=== PATIENT | female | born 1960 | race Caucasian/White ===

== ENCOUNTER 2017-01-12 08:33 | Outpatient (CLI) | payer BC ==
[~2017-01-12] VITALS: Ht 165.1 cm; Wt 55.8 kg
[2017-01-12] MEDS ORDERED: LEVO75TA PO (10:05)
[2017-01-12] MEDS ORDERED: ESTR1TAB24 PO (10:05)
[2017-01-12] MEDS ORDERED: SERT100T PO (10:05)
[2017-01-12] MEDS ORDERED: MAXZIDE PO (10:05)
== END 2017-01-12 10:07 ==
LOC: PREOP 08:33
PROVIDERS: ATTEND Surgery
DX: Z01.818 Encounter for other preprocedural examination (principal); K92.1 Melena

== ENCOUNTER 2017-01-15 11:23 | Day surgery (SDC) | payer BC ==
[~2017-01-15] VITALS: Ht 165.1 cm; Wt 55.8 kg
[~2017-01-15 11:23] MED LIST: ESTR1TAB24 PO; LEVO75TA PO; MAXZIDE PO; SERT100T PO
[2017-01-15] MEDS ORDERED: LACTATED RINGERS 1,000 ML IV ONE (11:30)
[2017-01-15 11:50] VITALS: BP 133/85
[2017-01-15] MEDS ORDERED: proPOfol 200 MG/20 ML (DIPRIVAN) VIAL IV ONE ×2 (11:52→12:09)
[2017-01-15] MEDS ORDERED: MIDAZOLAM 2 MG/2 ML (VERSED) VIAL ONE (11:53)
--- NOTE | 2017-01-15 11:59 | Progress Note-Pre Operative ---
Pre-Operative Progress Note H&P Reviewed The H&P was reviewed, patient examined and no changes noted. Time Seen by Provider: 11:54 Date H&P Reviewed: Jan 15, 2017 Time H&P Reviewed: 11:58 Pre-Operative Diagnosis: Rectal bleed KADEN BACK DO Jan 15, 2017 11:58
[2017-01-15 12:45] VITALS: BP 110/66
[2017-01-15 13:20] VITALS: BP 143/94
--- NOTE | 2017-01-15 13:22 | Progress Note-Post Operative ---
Post-Operative Progess Note Surgeon (s)/Lending Manager (s) Surgeon KADEN BACK DO Lending Manager: none Pre-Operative Diagnosis Rectal bleed Post-Operative Diagnosis colon polyp colon mass diverticula internal hemorrhoids Procedure & Operative Findings Date of Procedure 01/15/17 Procedure Performed/Findings Colon with snare Colon with hot bx Anesthesia Type IV sedation by LEAD WEB DEVELOPER Estimated Blood Loss Estimated blood loss (mL): scant Specimens/Packing Specimens Removed Polyp - ascending colon Sigmoid Colon mass - bx KADEN BACK DO Jan 15, 2017 13:22
[2017-01-15 13:24] VITALS: BP 143/94
--- NOTE | 2017-01-15 13:24 | Endoscopy Discharge Instruct ---
Endo Procedure/Findings Findings 1.: Polyp 2.: Other Findings (large sigmoid colon polyp/mass) 3.: Diverticulosis 4.: Internal Hemorrhoids Discharge Instructions - Activity: You might feel a little sleepy until tomorrow. This is due to the medicine you received to relax you. Until tomorrow, you should: NOT drive a car, operate machinery or power tools. NOT drink any alcoholic beverages. NOT make any important decisions or sign importortant papers. Do not return to work until tomorrow, unless otherwise instructed. Resume previous activities tomorrow. Diet: Start by taking liquids. If you tolerate liquids, advance to solid food. Make appointment for one week from now. Instructions: 1.: Colonoscopy in 1 year Notify Physician - If you experience excessive bleeding, unusual abdominal pain, fever, or chest pain, contact your doctor immediately. [phone] Follow-Up: - I have received and understand the above instructions and will call my doctor if I have any further questions. Patient Signature Date Nurse Signature Other (Relationship) KADEN BACK DO Jan 15, 2017 13:23
--- NOTE | 2017-01-15 14:28 | OPERATIVE REPORT ---
DATE OF SERVICE: 01/15/2017 PREOPERATIVE DIAGNOSIS: Rectal bleed. POSTOPERATIVE DIAGNOSES: 1. Colon polyp. 2. Colon mass. 3. Diverticula. 4. Internal hemorrhoids. PROCEDURE: 1. Colonoscopy with snare polypectomy. 2. Colonoscopy with hot biopsy. SURGEON: Dr. Bauer. MORTGAGE MANAGER: None. ANESTHESIA: IV sedation by the GENDER STUDIES PROFESSOR. SPECIMEN: One polyp from the ascending colon and then biopsies from a mass in the sigmoid colon. BLOOD LOSS: Scant. FLUIDS: Per anesthesia. POSTOPERATIVE CONDITION: Stable. INDICATION FOR PROCEDURE: The patient is a 56-year-old female who had a little bit of rectal bleeding and has never had a colonoscopy and needs workup. FINDINGS: The patient had a small polyp seen in the ascending colon. She has a long polyp/mass in the sigmoid colon at about 18 cm to about 28 cm. She also had some diverticula noted, some grade II, almost grade III internal hemorrhoids. PROCEDURE NOTE: After informed consent was obtained, the patient was brought to the endoscopy suite, placed in the bed in left lateral decubitus position. She was administered IV sedation by the GENDER STUDIES PROFESSOR and her vitals monitored the entire time by the GENDER STUDIES PROFESSOR. Inserted the scope and on the way in noted a large polyp/mass, pushed pass this. Pushed all the way to about 150 cm, able to get all the way to cecum, took a picture of the appendiceal orifice, noted the ileocecal valve and then slowly withdrew the scope insufflating to look circumferentially at the lee looking at the cecum up the ascending colon. In the ascending colon saw a small polyp. Elected to do a snare polypectomy. I removed this en bloc, passed this off the suction, able to get this out, suctioned this up and then sent this to pathology. I continued up the ascending colon, there were some diverticula in here to the hepatic flexure, then down the transverse colon to the splenic flexure and then into the descending colon and into the sigmoid. Again saw some diverticula throughout here. In the sigmoid colon at about 28 cm saw the beginnings of a large colonic polyp or mass. I went back down to about 10 cm, elected to do a couple biopsies of this polyp/mass. These were then sent to pathology. I then continued down into the rectum, retroflexed and rectal vault. Saw some grade II, almost grade III internal hemorrhoids, took a picture of this and then removed the scope. The patient tolerated procedure. She was recovered in the endoscopy suite and then taken back to her room. Job ID: [id number] DocumentID: [id number] Dictated Date: 01/15/2017 13:37:06 Suspect Artist Supervisor Date: 01/15/2017 14:27:11 Dictated By: KADEN BAUER DO
== END 2017-01-15 13:50 | disposition home or self-care (01) ==
LOC: ENDO 11:23
PROVIDERS: ATTEND Surgery
DX: C18.7 Malignant neoplasm of sigmoid colon (principal); D12.2 Benign neoplasm of ascending colon; K57.30 Diverticulosis of large intestine without perforation or abscess without bleeding; K64.8 Other hemorrhoids; I10 Essential (primary) hypertension; Z87.891 Personal history of nicotine dependence

== ENCOUNTER 2017-01-24 12:47 | Outpatient (CLI) | payer BC ==
[~2017-01-24] VITALS: Ht 165.1 cm; Wt 53.6 kg
[2017-01-24] MEDS ORDERED: TRIA1CAP4 PO (13:09)
[2017-01-24] MEDS ORDERED: MEDR2.5T6 PO (13:09)
[2017-01-24 13:13] VITALS: BP 121/82
[2017-01-24 13:51] LABS: BASOPHILS # (AUTO) 0.1 10^3/uL (0.0-0.1); BASOPHILS % (AUTO) 2 % (0-10); EOSINOPHILS # (AUTO) 0.1 10^3/uL (0.0-0.3); EOSINOPHILS % (AUTO) 1 % (0-10); LYMPHOCYTES # (AUTO) 2.4 X 10^3 (1.0-4.0); LYMPHOCYTES % (AUTO) 31 % (12-44); MEAN CORPUSCULAR HEMOGLOBIN 31 PG (25-34); MEAN CORPUSCULAR HGB CONC 34 G/DL (32-36); MEAN CORPUSCULAR VOLUME 89 FL (80-99); MEAN PLATELET VOLUME 9.7 FL (7.4-10.4); MONOCYTES # (AUTO) 0.5 X 10^3 (0.0-1.0); MONOCYTES % (AUTO) 6 % (0-12); NEUTROPHILS # (AUTO) 4.8 X 10^3 (1.8-7.8); NEUTROPHILS % (AUTO) 61 % (42-75); PLATELET COUNT 377 10^3/uL (130-400); RED BLOOD COUNT 4.43 10^6/uL (4.35-5.85); RED CELL DISTRIBUTION WIDTH 12.1 % (10.0-14.5)
[2017-01-24 14:14] LABS: ALANINE AMINOTRANSFERASE 12 U/L (0-55); ALBUMIN 4.6 GM/DL (3.2-4.5); ANION GAP 8 MMOL/L (5-14); ASPARTATE AMINO TRANSFERASE 17 U/L (5-34); BILIRUBIN,TOTAL 0.5 MG/DL (0.1-1.0); BLOOD UREA NITROGEN 10 MG/DL (7-18); BUN/CREATININE RATIO 13; CALCIUM 9.7 MG/DL (8.5-10.1); CARBON DIOXIDE 28 MMOL/L (21-32); CHLORIDE 103 MMOL/L (98-107); CREATININE SERUM 0.78 MG/DL (0.60-1.30); GFR ESTIMATED > 60; GLUCOSE 81 MG/DL (70-105); POTASSIUM 3.5 MMOL/L (3.6-5.0); SODIUM 139 MMOL/L (135-145)
[2017-01-25] MEDS ORDERED: TRIA1TAB3 PO (14:33)
[2017-01-25] MEDS ORDERED: CHOL5000 PO (14:37)
[2017-01-25] MEDS ORDERED: FLUT16SP22 NS (14:37)
[2017-01-25] MEDS ORDERED: MAGN500C15 PO (14:37)
[2017-01-25] MEDS ORDERED: L.AC1CAP6 PO (14:37)
== END 2017-01-24 14:43 | disposition home or self-care (01) ==
LOC: PREOP 12:47
PROVIDERS: ATTEND Surgery
DX: Z01.812 Encounter for preprocedural laboratory examination (principal); C18.9 Malignant neoplasm of colon, unspecified
CPT/HCPCS: 36415; 80053; 85025; 86850; 86900; 86901; 87081

== ENCOUNTER 2017-01-29 08:22 | Inpatient (IN) | payer BC ==
[~2017-01-29] VITALS: Ht 165.1 cm; Wt 53.6 kg
[~2017-01-29 08:22] MED LIST changes: +CHOL5000 PO; +FLUT16SP22 NS; +L.AC1CAP6 PO; +MAGN500C15 PO; +MEDR2.5T6 PO; +TRIA1CAP4 PO; +TRIA1TAB3 PO
[2017-01-29] MEDS: LACTATED RINGERS 1,000 ML IV PRN ×2 (08:45→11:45)
[2017-01-29] MEDS ORDERED: CLINDAMYCIN 600 MG/4ML (CLEOCIN) VIAL ONE (08:46)
[2017-01-29] MEDS ORDERED: NS (IVPB) 50 ML ONE (08:47)
[2017-01-29] MEDS ORDERED: CLINDAMYCIN 600 MG/NS 50 ML IVPB IV ONE ×2 (09:00)
[2017-01-29 09:16] VITALS: BP 129/84
[2017-01-29] MEDS ORDERED: LACTATED RINGERS 1,000 ML IV PRN (09:28)
[2017-01-29] MEDS ORDERED: ROPIVACAINE 5MG/ML 30ML VIAL ONE (09:29)
[2017-01-29] MEDS ORDERED: 0.9% SODIUM CHLORIDE PF INJ 20 ML VIAL ONE (09:31)
--- NOTE | 2017-01-29 09:32 | History & Physical-Surgical ---
HPO-Surgical History of Present Illness Chief Complaint: Sigmoid colon CA Diagnosis/Surgical Indication: Same as above Procedure: Hand Assisted Laparoscopic Sigmoid Colon Resection Date of Surgery: Jan 29, 2017 Weight (Pounds): 118 Weight (Ounces): 2.0 Height (Feet): 5 Height (Inches): 5.00 Allergies and Home Medications Allergies Coded Allergies: cefotetan (Verified Allergy, Unknown, 01/24/17) morphine (Verified Allergy, Unknown, 01/24/17) Home Medications Cholecalciferol (Vitamin D3) 5,000 Unit Capsule, 5,000 UNIT PO DAILY, (Reported) Estradiol 1 Mg Tablet, 1 MG PO DAILY, (Reported) Fluticasone Propionate 16 Gm [place].susp, 1 SPRAY NS DAILY PRN for CONGESTION, ( Reported) L.acidoph & Paracasei,B.lactis 1 Each Capsule, 1 CAP PO DAILY, (Reported) Levothyroxine Sodium 75 Mcg Tablet, 75 MCG PO DAILY, (Reported) LAST FILLED #60 10-12-16 Magnesium Oxide 500 Mg Capsule, 500 MG PO DAILY, (Reported) Medroxyprogesterone Acetate 2.5 Mg Tablet, 2.5 MG PO DAILY, (Reported) LAST FILLED #60 10-12-16 Sertraline HCl 100 Mg Tablet, 100 MG PO HS, (Reported) Triamterene/Hydrochlorothiazid 1 Each Tablet, 1 TAB PO DAILY, (Reported) LAST FILLED #90 10-10-16 Past Nzaohkh-Xpevaz-Gsrdbu Hx Patient Social History Alcohol Use: Occasionally Uses Recreational Drug Use: No Smoking Status: Former Smoker Former Smoker, Quit: Jan 13, 2004 Type Used: Cigarettes Physical Abuse Screen: No Sexual Abuse: No Recent Foreign Travel: No Contact w/other who traveled: No Recent Hopitalizations: Yes Recent Infectious Disease Expo: No Seasonal Allergies Seasonal Allergies: No Surgeries Yes Gallbladder, Tonsillectomy Respiratory No Cardiovascular Yes (TAKES TRIM/HCTZ FOR FLUID) Neurological Yes Reproductive System Sexually Transmitted Disease: No HIV/AIDS: No Genitourinary No Gastrointestinal Yes (ADENOCARCINOMA) Chronic Constipation Musculoskeletal No Endocrine History of Endocrine Disorders: Yes HEENT History of HEENT Disorders: Yes (READING GLASSES) Loss of Vision: Bilateral Hearing Impairment: Denies Cancer Yes Colon Psychosocial History of Psychiatric Problem: No Integumentary History of Skin or Integumenta: Yes Skin/Integumentary Disorders: Eczema Blood Transfusions History of Blood Disorders: No Adverse Reaction to a Blood Tr: No Exam Vital Signs Vital Signs 01/29/17 09:16 Temp 98.7 Pulse 78 Resp 16 B/P (MAP) 129/84 Pulse Ox 100 O2 Delivery Room Air Capillary Refill : General Appearance: Alert, Oriented X3 HEENT: PERRLA, EOMI Cardiovascular: Regular Rate, No Murmurs Abdominal: Normal Bowel Sounds, Soft, No Hepatosplenomegaly Assessment/Plan Assessment and Plan Sigmoid Colon CA Plan is to take pt to surgery for Hand Assisted Laparoscopic Sigmoid colon resection. Will attempt a TAP block for pain control. Discussed risks and complications with the pt; including but not limited to pain, bleeding, infection, damage to bowel and need for further procedure. All questions answered to her and her family's satisfaction. Problems: KADEN BACK DO Jan 29, 2017 09:32
[2017-01-29] MEDS ORDERED: MIDAZOLAM 2 MG/2 ML (VERSED) VIAL ONE (09:51)
[2017-01-29] MEDS ORDERED: ONDANSETRON 4 MG/2 ML (SDV) Z0FRAN ONE ×2 (09:51→12:14)
[2017-01-29] MEDS ORDERED: proPOfol 200 MG/20 ML (DIPRIVAN) VIAL IV ONE (09:51)
[2017-01-29] MEDS ORDERED: ROCURONIUM 50 MG/5 ML (ZEMURON) VIAL IV ONE (09:51)
[2017-01-29] MEDS ORDERED: LIDOCAINE PF 2% 5 ML (XYLOCAINE) VIAL ONE (09:51)
[2017-01-29] MEDS ORDERED: fentaNYL INJECTION 100 MCG/2 ML AMP ONE ×2 (09:51→12:14)
[2017-01-29] MEDS ORDERED: LIDOCAINE/EPI 1%-1:200,000 (XYLOCAINE) 10 ML VIAL ONE (10:01)
[2017-01-29] MEDS ORDERED: SEVOFLURANE (ULTANE) 15 ML INHAL SOLN ONE ×5 (11:04→12:23)
[2017-01-29] MEDS ORDERED: HYDROmorphone (DILAUDID) 2 MG/ML VIAL ONE (12:13)
[2017-01-29] MEDS ORDERED: NEOSTIGMINE (BLOXIVERZ ) 1 MG/1ML 10 ML VIAL ONE (12:20)
[2017-01-29] MEDS ORDERED: GLYCOPYRROLATE 0.2 MG/ML (ROBINUL) 2 ML VIAL ONE (12:20)
[2017-01-29] MEDS ORDERED: MEPERIDINE (DEMEROL) INJ 50 MG/ML ONE (12:24)
[2017-01-29] MEDS ORDERED: ONDANSETRON 4 MG/2 ML (SDV) Z0FRAN IV PRN (12:30)
[2017-01-29] MEDS ORDERED: ONDANSETRON 4 MG/2 ML (SDV) Z0FRAN IVP PRN (13:00)
[2017-01-29] MEDS ORDERED: fentaNYL INJECTION 100 MCG/2 ML AMP IVP PRN (13:00)
[2017-01-29] MEDS ORDERED: KETOROLAC 30 MG/ML VIAL IV SCH (13:00)
[2017-01-29] MEDS ORDERED: MEPERIDINE (DEMEROL) INJ 50 MG/ML IVP PRN (13:00)
[2017-01-29 13:45] VITALS: BP 123/66
[2017-01-29] MEDS: ACETAMINOPHEN 500 MG TAB (TYLENOL) PO SCH ×3 (15:27→21:20)
[2017-01-29] MEDS: LACTATED RINGERS 1,000 ML IV SCH ×2 (15:28→23:38)
[2017-01-29 16:59] VITALS: BP 102/63
[2017-01-29] MEDS: KETOROLAC 30 MG/ML VIAL IVP PRN (18:10)
[2017-01-29] MEDS ORDERED: INFLUENZA TRIvalent 2017-2018 0.5 ML/45 MCG SYR IM ONE (19:15)
[2017-01-29 20:57] VITALS: BP 103/66
[2017-01-29] MEDS: fentaNYL INJECTION 100 MCG/2 ML AMP IVP PRN (21:20)
[2017-01-30 00:22] VITALS: BP 101/58
[2017-01-30] MEDS: fentaNYL INJECTION 100 MCG/2 ML AMP IVP PRN ×4 (03:07→20:46)
[2017-01-30] MEDS: KETOROLAC 30 MG/ML VIAL IVP PRN ×4 (03:07→20:44)
[2017-01-30 04:25] VITALS: BP 132/75
[2017-01-30] MEDS: LACTATED RINGERS 1,000 ML IV SCH ×3 (04:51→14:40)
[2017-01-30 06:45] LABS: BASOPHILS # (AUTO) 0.1 10^3/uL (0.0-0.1); BASOPHILS % (AUTO) 1 % (0-10); EOSINOPHILS % (AUTO) 1 % (0-10); LYMPHOCYTES # (AUTO) 1.6 X 10^3 (1.0-4.0); LYMPHOCYTES % (AUTO) 25 % (12-44); MEAN CORPUSCULAR HEMOGLOBIN 30 PG (25-34); MEAN CORPUSCULAR HGB CONC 33 G/DL (32-36); MEAN CORPUSCULAR VOLUME 92 FL (80-99); MEAN PLATELET VOLUME 10.1 FL (7.4-10.4); MONOCYTES # (AUTO) 0.6 X 10^3 (0.0-1.0); MONOCYTES % (AUTO) 9 % (0-12); NEUTROPHILS # (AUTO) 4.2 X 10^3 (1.8-7.8); NEUTROPHILS % (AUTO) 65 % (42-75); PLATELET COUNT 228 10^3/uL (130-400); RED BLOOD COUNT 3.36 10^6/uL (4.35-5.85); RED CELL DISTRIBUTION WIDTH 12.2 % (10.0-14.5); WHITE BLOOD COUNT 6.6 10^3/uL (4.3-11.0)
[2017-01-30 07:01] LABS: ALANINE AMINOTRANSFERASE 11 U/L (0-55); ALBUMIN 3.1 GM/DL (3.2-4.5); ANION GAP 7 MMOL/L (5-14); ASPARTATE AMINO TRANSFERASE 16 U/L (5-34); BILIRUBIN,TOTAL 0.6 MG/DL (0.1-1.0); BLOOD UREA NITROGEN 5 MG/DL (7-18); BUN/CREATININE RATIO 8; CALCIUM 8.2 MG/DL (8.5-10.1); CARBON DIOXIDE 24 MMOL/L (21-32); CHLORIDE 109 MMOL/L (98-107); CREATININE SERUM 0.66 MG/DL (0.60-1.30); GFR ESTIMATED > 60; GLUCOSE 85 MG/DL (70-105); POTASSIUM 3.5 MMOL/L (3.6-5.0); SODIUM 140 MMOL/L (135-145); TOTAL PROTEIN 5.4 GM/DL (6.4-8.2)
[2017-01-30 08:00] VITALS: BP 127/61
[2017-01-30] MEDS: ACETAMINOPHEN 500 MG TAB (TYLENOL) PO SCH ×4 (09:57→20:36)
--- NOTE | 2017-01-30 10:30 | Progress Note-Post Operative ---
Post-Operative Progess Note Surgeon (s)/Battery Plate Remover (s) Surgeon KADEN BACK DO Battery Plate Remover: Marilu Pre-Operative Diagnosis Sigmoid colon CA Post-Operative Diagnosis Same Procedure & Operative Findings Date of Procedure 01/30/17 Procedure Performed/Findings Hand assisted Laparoscopic Low anterior resection with primary anastomosis Anesthesia Type GET Estimated Blood Loss Estimated blood loss (mL): less than 5ml Specimens/Packing Specimens Removed sigmoid colon, with at least 5cm proximal margin and 8cm distal margin by palpation, one lymph node palpated KADEN BACK DO Jan 30, 2017 10:30
--- NOTE | 2017-01-30 10:36 | Progress Note ---
Subjective Date Seen by Provider: Jan 30, 2017 Time Seen by Provider: 10:17 Subjective/Events-last exam Pt seen and examined, states pain is about a 5. Tolerating clears, no flatus or BM yet. Had increased pain last night and was given Fentanyl which helped. Has not walked yet today. Review of Systems General: No Chills, No Night Sweats Pulmonary: No Dyspnea, No Cough Cardiovascular: No: Chest Pain Gastrointestinal: Abdominal Pain, No: Nausea, Vomiting Objective Exam Vital Signs Date Time Temp Pulse Resp B/P (MAP) Pulse Ox O2 Delivery O2 Flow Rate FiO2 01/30/17 08:00 99.3 69 20 127/61 99 Room Air 01/30/17 04:25 99.3 63 18 132/75 99 Room Air 01/30/17 00:22 98.4 74 17 101/58 97 Room Air 01/29/17 20:57 98.2 77 16 103/66 97 Room Air 01/29/17 16:59 98.6 82 16 102/63 97 Room Air 01/29/17 13:45 97.5 72 18 123/66 99 Room Air Capillary Refill : General Appearance: No Apparent Distress, Thin Respiratory: Lungs Clear, Normal Breath Sounds Cardiovascular: Regular Rate, Rhythm, No Murmur Gastrointestinal: soft, tenderness (diffusely but most at midline incision) Neurologic/Psychiatric: Alert, Oriented x3 Results Lab Laboratory Tests 01/30/17 06:30: White Blood Count 6.6, Red Blood Count 3.36L, Hemoglobin 10.2#L, Hematocrit 31L , Mean Corpuscular Volume 92, Mean Corpuscular Hemoglobin 30, Mean Corpuscular Hemoglobin Concent 33, Red Cell Distribution Width 12.2, Platelet Count 228, Mean Platelet Volume 10.1, Neutrophils (%) (Auto) 65, Lymphocytes (%) (Auto) 25 , Monocytes (%) (Auto) 9, Eosinophils (%) (Auto) 1, Basophils (%) (Auto) 1, Neutrophils # (Auto) 4.2, Lymphocytes # (Auto) 1.6, Monocytes # (Auto) 0.6, Eosinophils # (Auto) 0.0, Basophils # (Auto) 0.1, Sodium Level 140, Potassium Level 3.5L, Chloride Level 109H, Carbon Dioxide Level 24, Anion Gap 7, Blood Urea Nitrogen 5L, Creatinine 0.66, Estimat Glomerular Filtration Rate > 60, BUN/ Creatinine Ratio 8, Glucose Level 85, Calcium Level 8.2L, Total Bilirubin 0.6, Aspartate Amino Transf (AST/SGOT) 16, Alanine Aminotransferase (ALT/SGPT) 11, Alkaline Phosphatase 40, Total Protein 5.4L, Albumin 3.1L Assessment/Plan Assessment/Plan Assessment/Plan S/P LAR Will increase to full liquid diet. IS ordered, pt instructed to use 10x every hour while awake. Pt told she must start ambulating, at least 4 times daily....better would be hourly. Pt also told it is ok to take occasional Fentanyl (we are trying avoid opioid constipation) but would rather have her able to walk, move and take deep breaths.....all those will help her get out sooner. Also encouraged her to chew gum. Clinical Quality Measures DVT/VTE Risk/Contraindication: Risk Factor Score Per Nursin RFS Level Per Nursing on Admit: 4+=Very High KADEN BACK DO Jan 30, 2017 10:36
[2017-01-30 12:00] VITALS: BP 135/69
--- NOTE | 2017-01-30 14:58 | Anesthesia-General Post-Op ---
General Patient Condition Mental Status/LOC: Same as Preop Cardiovascular: Satisfactory Nausea/Vomiting: Absent Respiratory: Satisfactory Pain: Controlled Complications: Absent Post Op Complications Complications None Follow Up Care/Instructions Patient Instructions None needed. Anesthesia/Patient Condition Patient Condition Patient is doing well, C/O pain, stable vital signs, no apparent adverse anesthesia problems. JENNIFER CRUZ DO Jan 30, 2017 14:58
[2017-01-30 16:35] VITALS: BP 123/74
[2017-01-30] MEDS ORDERED: FLUTICASONE NASAL SPRAY (FLONASE) 16 GM BTL NS PRN (18:45)
[2017-01-30] MEDS ORDERED: PATIENT MAY USE OWN MEDS, ALL MC SCH (18:45)
[2017-01-30 19:55] VITALS: BP 110/70
[2017-01-30] MEDS ORDERED: SERTRALINE 100 MG (ZOLOFT) TAB PO SCH (21:00)
[2017-01-31 00:08] VITALS: BP 152/72
[2017-01-31] MEDS: LACTATED RINGERS 1,000 ML IV SCH ×2 (00:28→12:21)
[2017-01-31] MEDS: fentaNYL INJECTION 100 MCG/2 ML AMP IVP PRN (00:28)
[2017-01-31] MEDS ORDERED: LEVOTHYROXINE 75 MCG (LEVOTHROID) TABLET PO SCH (06:30)
[2017-01-31] MEDS ORDERED: VITAMIN D3 5,000 UNITS (CHOLECALCIFEROL ) CAPSULE PO SCH (07:00)
[2017-01-31] MEDS ORDERED: LACTOBACILLUS Acidoph/Bulgar (LACTINEX/FLORANEX) TAB PO SCH (07:00)
[2017-01-31] MEDS: KETOROLAC 30 MG/ML VIAL IVP PRN ×2 (07:34→14:26)
[2017-01-31] MEDS: ACETAMINOPHEN 500 MG TAB (TYLENOL) PO SCH (07:45)
[2017-01-31 08:00] VITALS: BP 138/64
[2017-01-31] MEDS ORDERED: MAGNESIUM OXIDE (MAG-OX)400 MG TAB PO SCH (08:00)
[2017-01-31] MEDS ORDERED: TRIAMTERENE HCTZ PO SCH (09:00)
[2017-01-31] MEDS ORDERED: medroxyPROGESTERone 2.5 MG (PROVERA) TABLET PO SCH (09:00)
[2017-01-31] MEDS ORDERED: ESTRADIOL 1 MG TAB (ESTRACE) PO SCH (09:00)
--- NOTE | 2017-01-31 11:14 | OPERATIVE REPORT ---
DATE OF SERVICE: 01/30/2017 PREOPERATIVE DIAGNOSIS: Sigmoid colon cancer. POSTOPERATIVE DIAGNOSIS: Sigmoid colon cancer. PROCEDURE: 1. Hand-assisted laparoscopic low anterior resection with primary anastomosis. 2. Ultrasound-guided TAP block. SURGEON: Kaden Bauer DO. LOCKS INSPECTOR: Jerel Michel DO. ANESTHESIA: General endotracheal tube. BLOOD LOSS: Less than 5 mL. FLUIDS: Per anesthesia. POSTOPERATIVE CONDITION: Stable. INDICATION FOR PROCEDURE: The patient is a 56-year-old female, who unfortunately during colonoscopy was found to have a sigmoid colon cancer. FINDINGS: The patient had a sigmoid colon cancer, but it was low, had to go into the retroperitoneum in the rectal area to get below the mass, got about 8 cm distally and about at least 5 cm proximally by measurements, did feel one lymph node in the mesentery, all this was sent to pathology. Did not see anything in the liver or any other peritoneal metastasis. PROCEDURE NOTE: After informed consent was obtained, the patient was brought to the operating room. She was intubated and then prior to prepping, performed a transversus abdominis peritoneal block with ultrasound guidance and bupivacaine, watched the advancement between the costal margin and the iliac crest on the axillary line, found the external oblique, internal oblique and transverse abdominis muscle and then advanced the needle under ultrasound guidance and placed first to make sure we are in the transverse abdominis area. We placed saline, got a good dissection and then added 20 mL of bupivacaine, did this on the left side and then went to the right side and repeated the same procedure again checking to make sure we are in the correct space with saline and then injecting bupivacaine. Once this was done, the nurse then sterilely prepped the patient as well as put a Carroll in. We then sterilely draped the patient. We then started with a midline incision just below the umbilicus, carried to just above with a #15 blade, also added some local here before making the incision, carried down through the skin and into the subcutaneous tissue, then deep down to the subcutaneous tissue with Bovie electrocautery down to the fascia. Fascia incised with Bovie electrocautery, then bluntly entered the abdomen. Increased the incision to be about 4 to 5 cm, I could get my hand in. I then placed a wound protector and then held the abdomen open and placed the 2 ports, one about 2 cm away from the iliac crest and one a little bit up about 8 to 10 cm above this. An 11 mm ports were placed, first infiltrating the skin with local and then made an incision with #11 blade and then inserting the VersaStep system, watching as it came in from the midline abdominal incision and then over the VersaStep system, placed the trocar port. Both went in easily without any difficulty. I then placed a Gelport over the abdominal wound protector and then created pneumoperitoneum. The patient then placed in Trendelenburg, placed my hand into the abdomen, able to palpate this mass and then started dissecting down, had to go right over the sacrum and then down into the retroperitoneal space to free this area up and identified the right and left ureter, stayed away from them and then came through the mesentery at that top just about 8 cm below this mass and then went above, about 5 cm above the mass, again felt with my hand in palpation to feel the mass and then went above this and then brought in the Endo-NICOL 55 3.5 mm stapler one across the base, clamped and fired and then transected and then clamped and fired the top one, and then using the LigaSure coming across the mesentery clamping, coagulating and transecting, going straight down from the distal incision and then up below the retroperitoneal fascia right on the sacrum and then back and up to the upper portion into the sigmoid and descending colon. Once this piece of intestine was then completely removed from the area, we opened the Gelport, pulled the intestine out and then marked it distally. We then placed the Gelport back on and then using the LigaSure, help freed up the descending colon to be able to bring it down and actually it was a very floppy and able to bring down into the pelvis without any difficulty. At this point, we then removed the GelPort and brought the intestine up through the midline incision, protected with the abdominal wall, placed 2 blue towels and then placed a pursestring applicator across the proximal portion of the bowel, clamped and then cut off the staple line and passed this off the table, and then placed a 29 ILS anvil into this proximal portion of colon, tied the pursestring down and then Dr. Michel went below. He dilated the rectum, 25, 28 dilators and then placed a 29 ILS stapler, had put the GelPort back on and created pneumoperitoneum, and we watched the trocar come out the midline right at the distal staple line, attached the anvil to the trocar and felt a good click and then tightened it down, held for 30 seconds to make sure there were no twists or turns and there were not, and then clamped and fired and held for 20 seconds then turned three-quarter turn and the stapling device came out very easily. Then, I placed some fluid in the pelvis, I held the descending colon tight with my fingers and then Dr. Michel placed a sigmoidoscope and then insufflated, blew up the intestine, I could see it dilate. The anastomosis was in the saline. There was no leakage at all. This was an airtight closure. At this point, I then released the air and then suctioned out the fluid. The patient was then placed supine, removed all ports under direct visualization. Closed the ports from the inside with 0 Vicryl simple suture to close the fascia and then removed the wound protector and then closed the midline incision with a #1 double stranded PDS suture running from the superior portion to inferior portion tying to itself, copiously irrigated with normal saline and suctioned this out and then closing the midline incision with payton as well as closing the two 11 mm port incisions with payton. Area was cleaned and dried, dressing placed and patient then transferred to recovery room in stable condition. Sponge and needle count correct at the end of the case. Dr. Michel assisted in making incisions, identifying anatomy and doing the distal portion of the primary anastomosis. The patient was then transferred to recovery in stable condition. Sponge and needle count were correct at the end of the case. Job ID: [id number] DocumentID: [id number] Dictated Date: 01/30/2017 12:26:38 Hypo Dipper Date: 01/31/2017 01:12:37 Dictated By: KADEN BAUER DO
--- NOTE | 2017-01-31 13:53 | Progress Note ---
Subjective Time Seen by Provider: 13:40 Subjective/Events-last exam Pt seen and examined, pain mostly controlled. States did have small BM, tolerating diet. Review of Systems General: No Chills, No Night Sweats Gastrointestinal: No: Nausea, Vomiting Objective Exam Vital Signs Date Time Temp Pulse Resp B/P (MAP) Pulse Ox O2 Delivery O2 Flow Rate FiO2 01/31/17 08:00 99.2 69 24 138/64 99 Room Air 01/31/17 00:08 98.7 71 18 152/72 99 Room Air 01/30/17 19:55 99.4 72 18 110/70 99 Room Air 01/30/17 19:29 Room Air 01/30/17 16:35 98.6 68 16 123/74 100 Room Air Capillary Refill : General Appearance: No Apparent Distress, Thin Respiratory: Lungs Clear, Normal Breath Sounds Cardiovascular: Regular Rate, Rhythm, No Murmur Gastrointestinal: soft, tenderness (minimal), other (incisions are clean dry and intact) Neurologic/Psychiatric: Alert, Oriented x3 Assessment/Plan Assessment/Plan Assessment/Plan S/P LAR Will D/C home. Clinical Quality Measures DVT/VTE Risk/Contraindication: Risk Factor Score Per Nursin RFS Level Per Nursing on Admit: 4+=Very High KADEN BACK DO Jan 31, 2017 13:53
[2017-01-31] MEDS ORDERED: HYDR-3812 PO (13:54)
--- NOTE | 2017-01-31 13:56 | Discharge Inst-Surgical ---
Discharge Inst-Surgical Depart Medication/Instructions New, Converted or Re-Newed RX: RX Given to Pt/Family Patient Instructions Follow up Appt: Make appointment for 1 week. Instructions: No lifting greater than 10 pounds. No strenuous activity. May shower in 24 hours, no tub bath or soaking. Use incentive spirometer at home as directed. No Smoking Skin/Wound Care: May remove bandages. You need to leave the white strips over incision on they will fall off on their own. Symptoms to Report: Appetite Changes, Extremity Discoloration, Numbness/Tingling, Swelling Increased , Bleeding Excessive, Eyesight Changes, Pain Increased, Urine Color Change, Constipation(Persistent), Fever over 101 degree F, Pain/Pressure in chest, Urinating Difficulty, Cough Up/Vomit Blood, Heart Beat Irreg/Pounding, Pain/ Pressure in jaw, Vaginal Bleeding Increase, Cramps in feet or legs, Lightheadedness, Pain/Pressure in shoulder, Diarrhea(Persistent), Memory Changes Suddenly, Questions/Concerns, Weight gain consecutive days, Dizziness/ Fainting, Nausea/Vomiting, Shortness of Breath, Weight gain over 2 pounds If questions or concerns contact your physician Or seek help at emergency department. Activity Activity as Tolerated: Yes Activity Instructions: Avoid Pulling & Pushing, Avoid Stress to Incision Driving Instructions: No Driving/Refer to Dr. Mcfadden Discharge Diet: No Restrictions Diet After 24 Hours: Clear Liquid if Nauseous If Any Problems/Questions/Issu: Contact Your Physician, Go to Emergency Room Skin/Wound Care Infection Signs and Symptoms: Increased Redness, Foul Odor of Wound, Increased Drainage, Skin Itchy or Has a Rash, Increased Swelling, Temperature Above 101 F Bathing Instructions: Shower Stitches/Shannon/Dermabond Dis: Care of KADEN Mcnamara DO Jan 31, 2017 13:56
== END 2017-01-31 14:53 | disposition home or self-care (01) | DRG 331 ==
LOC: 4TH 08:22 → SURG 08:23 → 4TH 13:49
PROVIDERS: ADMIT Surgery; ATTEND Surgery
PROC: 0DTN0ZZ Resection of Sigmoid Colon, Open Approach (ICD-10-PCS; principal; 2017-01-30)
PROC: 0D1M0ZP Bypass Descending Colon to Rectum, Open Approach (ICD-10-PCS; 2017-01-30)
DX: C18.7 Malignant neoplasm of sigmoid colon (principal); K59.09 Other constipation; Z87.891 Personal history of nicotine dependence
CPT/HCPCS: 36415; 80053; 85025; 94664

== ENCOUNTER → 2017-02-12 | Outpatient (CLI) | payer BC ==
[~2017-02-12] MED LIST changes: +HYDR-3812 PO
== END ==
LOC: LAB 12:00
PROVIDERS: ATTEND Surgery
DX: R35.0 Frequency of micturition (principal)
CPT/HCPCS: 87088

== ENCOUNTER 2017-03-20 09:09 | Outpatient (RCR) | payer BC ==
[~2017-03-20 09:09] MED LIST changes: +ACHD5005 PO; -HYDR-3812 PO
[2017-03-20 11:07] LABS: BASOPHILS # (AUTO) 0.1 10^3/uL (0.0-0.1); BASOPHILS % (AUTO) 2 % (0-10); EOSINOPHILS # (AUTO) 0.1 10^3/uL (0.0-0.3); EOSINOPHILS % (AUTO) 2 % (0-10); HEMATOCRIT 39 % (35-52); HEMOGLOBIN 13.5 G/DL (11.5-16.0); LYMPHOCYTES # (AUTO) 2.2 X 10^3 (1.0-4.0); LYMPHOCYTES % (AUTO) 33 % (12-44); MEAN CORPUSCULAR HEMOGLOBIN 31 PG (25-34); MEAN CORPUSCULAR HGB CONC 35 G/DL (32-36); MEAN CORPUSCULAR VOLUME 89 FL (80-99); MEAN PLATELET VOLUME 10.1 FL (7.4-10.4); MONOCYTES # (AUTO) 0.4 X 10^3 (0.0-1.0); MONOCYTES % (AUTO) 6 % (0-12); NEUTROPHILS # (AUTO) 3.7 X 10^3 (1.8-7.8); NEUTROPHILS % (AUTO) 57 % (42-75); PLATELET COUNT 307 10^3/uL (130-400); RED BLOOD COUNT 4.36 10^6/uL (4.35-5.85); RED CELL DISTRIBUTION WIDTH 11.8 % (10.0-14.5); WHITE BLOOD COUNT 6.5 10^3/uL (4.3-11.0)
[2017-03-20 11:23] LABS: ALANINE AMINOTRANSFERASE 13 U/L (0-55); ALBUMIN 4.5 GM/DL (3.2-4.5); ALKALINE PHOSPHATASE 56 U/L (40-136); BILIRUBIN,TOTAL 0.5 MG/DL (0.1-1.0); BUN/CREATININE RATIO 18; CALCIUM 9.7 MG/DL (8.5-10.1); CARBON DIOXIDE 28 MMOL/L (21-32); CHLORIDE 105 MMOL/L (98-107); CREATININE SERUM 0.77 MG/DL (0.60-1.30); GFR ESTIMATED > 60; GLUCOSE 92 MG/DL (70-105); POTASSIUM 4.4 MMOL/L (3.6-5.0); SODIUM 141 MMOL/L (135-145); TOTAL PROTEIN 7.8 GM/DL (6.4-8.2)
== END 2017-06-18 | disposition home or self-care (01) ==
LOC: ONC 09:09
PROVIDERS: ATTEND Internal Medicine Hematology & Oncology
DX: C18.7 Malignant neoplasm of sigmoid colon (principal); Z87.891 Personal history of nicotine dependence
CPT/HCPCS: 36415; 80053; 82378; 85025; 99214

== ENCOUNTER → 2017-03-22 | Outpatient (CLI) | payer BC ==
[~2017-03-22] MED LIST changes: -ACHD5005 PO; +CATHETER FLUSH 10 ML SYR IV PRN; +HYDR-3812 PO; +IOHEXOL 350 MG/ML 100 ML (OMNIPAQUE 350) VIAL IV ONE; +NS 100 ML (IVPB) BAG IV ONE
--- NOTE | 2017-03-22 15:05 | Diagnostic Imaging Report ---
PROCEDURE: CT chest, abdomen, and pelvis with contrast. TECHNIQUE: Multiple contiguous axial images were obtained through the chest, abdomen, and pelvis after the administration of intravenous contrast. INDICATION: Sigmoid colon malignancy. COMPARISON: I have no previous. FINDINGS: Chest: Lungs are clear. No pulmonary nodule or lung mass. There is no thoracic adenopathy or effusion. No chest wall abnormality. Abdomen and pelvis: The gallbladder is absent. The liver and bile ducts are unremarkable. The spleen and adrenals are negative. The pancreas is normal. There is no omental infiltration. The fat along the mesenteric root appeared normal. There is no abdominopelvic mesenteric or retroperitoneal lymphadenopathy. There are anastomotic changes to the sigmoid colon without evidence for perianastomotic leak, obstruction, or regional neoplastic recurrence. No adenopathy or abnormal tissue along the pelvic sidewalls. Uterus is eccentric to the right. There is no adnexal lesion. The urinary bladder is normal. There is no ascites. The osseous structures were unremarkable. IMPRESSION: 1. Chest: No evidence for metastatic disease or acute abnormality. 2. Abdomen: No evidence of metastatic disease or acute abnormality. 3. Pelvis: Postoperative changes without findings of neoplastic recurrence or acute abnormalities. Dictated by: Dictated on workstation # [id number]
== END ==
LOC: RAD 13:44
PROVIDERS: ATTEND Internal Medicine Hematology & Oncology
DX: Z08 Encounter for follow-up examination after completed treatment for malignant neoplasm (principal); Z85.038 Personal history of other malignant neoplasm of large intestine; Z98.890 Other specified postprocedural states
CPT/HCPCS: 71260; 74177

== ENCOUNTER 2017-06-19 14:47 | Outpatient (RCR) | payer BC ==
[~2017-06-19 14:47] MED LIST changes: +ACHD5005 PO; -CATHETER FLUSH 10 ML SYR IV PRN; -HYDR-3812 PO; -IOHEXOL 350 MG/ML 100 ML (OMNIPAQUE 350) VIAL IV ONE; -NS 100 ML (IVPB) BAG IV ONE
[2017-06-19 15:13] LABS: BASOPHILS # (AUTO) 0.1 10^3/uL (0.0-0.1); BASOPHILS % (AUTO) 2 % (0-10); EOSINOPHILS # (AUTO) 0.1 10^3/uL (0.0-0.3); EOSINOPHILS % (AUTO) 1 % (0-10); HEMATOCRIT 37 % (35-52); LYMPHOCYTES # (AUTO) 2.6 X 10^3 (1.0-4.0); LYMPHOCYTES % (AUTO) 36 % (12-44); MEAN CORPUSCULAR HEMOGLOBIN 32 PG (25-34); MEAN CORPUSCULAR HGB CONC 35 G/DL (32-36); MEAN CORPUSCULAR VOLUME 90 FL (80-99); MONOCYTES # (AUTO) 0.6 X 10^3 (0.0-1.0); MONOCYTES % (AUTO) 8 % (0-12); NEUTROPHILS # (AUTO) 3.7 X 10^3 (1.8-7.8); NEUTROPHILS % (AUTO) 53 % (42-75); PLATELET COUNT 269 10^3/uL (130-400); RED BLOOD COUNT 4.13 10^6/uL (4.35-5.85); RED CELL DISTRIBUTION WIDTH 12.4 % (10.0-14.5); WHITE BLOOD COUNT 7.1 10^3/uL (4.3-11.0)
[2017-06-19 15:36] LABS: ALANINE AMINOTRANSFERASE 12 U/L (0-55); ALBUMIN 4.2 GM/DL (3.2-4.5); ALKALINE PHOSPHATASE 50 U/L (40-136); BILIRUBIN,TOTAL 0.4 MG/DL (0.1-1.0); BUN/CREATININE RATIO 18; CALCIUM 9.4 MG/DL (8.5-10.1); CARBON DIOXIDE 26 MMOL/L (21-32); CHLORIDE 104 MMOL/L (98-107); CREATININE SERUM 0.77 MG/DL (0.60-1.30); GFR ESTIMATED > 60; GLUCOSE 79 MG/DL (70-105); POTASSIUM 3.9 MMOL/L (3.6-5.0); SODIUM 139 MMOL/L (135-145); TOTAL PROTEIN 7.2 GM/DL (6.4-8.2)
== END 2017-09-17 15:06 | disposition home or self-care (01) ==
LOC: ONC 14:47
PROVIDERS: ATTEND Internal Medicine Hematology & Oncology
DX: C18.7 Malignant neoplasm of sigmoid colon (principal); E03.9 Hypothyroidism, unspecified; R00.2 Palpitations; K59.00 Constipation, unspecified; Z87.891 Personal history of nicotine dependence; Z79.899 Other long term (current) drug therapy
CPT/HCPCS: 80053; 82378; 84443; 85025; 99213

== ENCOUNTER 2017-09-18 08:59 | Outpatient (RCR) | payer BC ==
[2017-09-18 09:17] LABS: BASOPHILS # (AUTO) 0.1 10^3/uL (0.0-0.1); BASOPHILS % (AUTO) 2 % (0-10); EOSINOPHILS # (AUTO) 0.1 10^3/uL (0.0-0.3); EOSINOPHILS % (AUTO) 2 % (0-10); HEMATOCRIT 37 % (35-52); LYMPHOCYTES # (AUTO) 1.8 X 10^3 (1.0-4.0); LYMPHOCYTES % (AUTO) 35 % (12-44); MEAN CORPUSCULAR HEMOGLOBIN 32 PG (25-34); MEAN CORPUSCULAR HGB CONC 35 G/DL (32-36); MEAN CORPUSCULAR VOLUME 91 FL (80-99); MEAN PLATELET VOLUME 9.9 FL (7.4-10.4); MONOCYTES # (AUTO) 0.5 X 10^3 (0.0-1.0); MONOCYTES % (AUTO) 10 % (0-12); NEUTROPHILS # (AUTO) 2.7 X 10^3 (1.8-7.8); NEUTROPHILS % (AUTO) 51 % (42-75); PLATELET COUNT 243 10^3/uL (130-400); RED BLOOD COUNT 4.12 10^6/uL (4.35-5.85); RED CELL DISTRIBUTION WIDTH 12.2 % (10.0-14.5); WHITE BLOOD COUNT 5.3 10^3/uL (4.3-11.0)
[2017-09-18 09:51] LABS: ALANINE AMINOTRANSFERASE 12 U/L (0-55); ALBUMIN 4.3 GM/DL (3.2-4.5); ALKALINE PHOSPHATASE 45 U/L (40-136); BILIRUBIN,TOTAL 0.6 MG/DL (0.1-1.0); BUN/CREATININE RATIO 21; CALCIUM 9.3 MG/DL (8.5-10.1); CARBON DIOXIDE 22 MMOL/L (21-32); CHLORIDE 104 MMOL/L (98-107); CREATININE SERUM 0.78 MG/DL (0.60-1.30); GFR ESTIMATED > 60; GLUCOSE 102 MG/DL (70-105); SODIUM 137 MMOL/L (135-145); TOTAL PROTEIN 7.2 GM/DL (6.4-8.2)
== END 2017-12-17 | disposition home or self-care (01) ==
LOC: ONC 08:59
PROVIDERS: ATTEND Internal Medicine Hematology & Oncology
DX: C18.7 Malignant neoplasm of sigmoid colon (principal); E03.9 Hypothyroidism, unspecified; R00.2 Palpitations; K59.00 Constipation, unspecified; Z87.891 Personal history of nicotine dependence; Z79.899 Other long term (current) drug therapy
CPT/HCPCS: 36415; 80053; 82378; 85025

== ENCOUNTER → 2017-09-18 | Outpatient (CLI) | payer BC ==
[2017-09-18 09:57] LABS: CHOLESTEROL 260 MG/DL (< 200); HDL CHOLESTEROL 65 MG/DL (40-60); TRIGLYCERIDES 84 MG/DL (<150); VLDL CHOLESTEROL 17 MG/DL (5-40)
== END ==
LOC: LAB 09:09
PROVIDERS: ATTEND Family Medicine
DX: E78.5 Hyperlipidemia, unspecified (principal)
CPT/HCPCS: 36415; 80061

== ENCOUNTER 2017-12-20 09:00 | Outpatient (RCR) | payer BC ==
[2017-12-20 09:11] LABS: BASOPHILS # (AUTO) 0.1 10^3/uL (0.0-0.1); BASOPHILS % (AUTO) 3 % (0-10); EOSINOPHILS # (AUTO) 0.1 10^3/uL (0.0-0.3); EOSINOPHILS % (AUTO) 2 % (0-10); HEMATOCRIT 39 % (35-52); HEMOGLOBIN 13.4 G/DL (11.5-16.0); LYMPHOCYTES # (AUTO) 1.4 X 10^3 (1.0-4.0); LYMPHOCYTES % (AUTO) 27 % (12-44); MEAN CORPUSCULAR HEMOGLOBIN 31 PG (25-34); MEAN CORPUSCULAR HGB CONC 34 G/DL (32-36); MEAN CORPUSCULAR VOLUME 91 FL (80-99); MONOCYTES # (AUTO) 0.4 X 10^3 (0.0-1.0); MONOCYTES % (AUTO) 7 % (0-12); NEUTROPHILS # (AUTO) 3.1 X 10^3 (1.8-7.8); NEUTROPHILS % (AUTO) 62 % (42-75); PLATELET COUNT 260 10^3/uL (130-400); RED BLOOD COUNT 4.31 10^6/uL (4.35-5.85); RED CELL DISTRIBUTION WIDTH 12.1 % (10.0-14.5); WHITE BLOOD COUNT 5.1 10^3/uL (4.3-11.0)
[2017-12-20 09:31] LABS: ALANINE AMINOTRANSFERASE 13 U/L (0-55); ALBUMIN 4.3 GM/DL (3.2-4.5); ALKALINE PHOSPHATASE 50 U/L (40-136); BILIRUBIN,TOTAL 0.3 MG/DL (0.1-1.0); BUN/CREATININE RATIO 18; CALCIUM 9.7 MG/DL (8.5-10.1); CARBON DIOXIDE 24 MMOL/L (21-32); CHLORIDE 106 MMOL/L (98-107); GFR ESTIMATED > 60; GLUCOSE 95 MG/DL (70-105); POTASSIUM 3.8 MMOL/L (3.6-5.0); SODIUM 140 MMOL/L (135-145); TOTAL PROTEIN 7.2 GM/DL (6.4-8.2)
[2017-12-28] MEDS ORDERED: OXYC1TAB87 PO (13:14)
== END 2018-01-13 | disposition home or self-care (01) ==
LOC: ONC 09:00
PROVIDERS: ATTEND Internal Medicine Hematology & Oncology
DX: C18.7 Malignant neoplasm of sigmoid colon (principal); E03.9 Hypothyroidism, unspecified; R00.2 Palpitations; K59.00 Constipation, unspecified; Z87.891 Personal history of nicotine dependence; Z79.899 Other long term (current) drug therapy
CPT/HCPCS: 36415; 80053; 82378; 85025; 99213

== ENCOUNTER 2017-12-24 09:44 | Outpatient (CLI) | payer BC ==
[~2017-12-24] VITALS: Ht 165.1 cm; Wt 54.9 kg
[2017-12-28] MEDS ORDERED: OXYC1TAB87 PO (13:14)
== END 2017-12-24 14:07 | disposition home or self-care (01) ==
LOC: PREOP 09:44
PROVIDERS: ATTEND Obstetrics & Gynecology
DX: Z01.818 Encounter for other preprocedural examination (principal)

== ENCOUNTER 2017-12-28 11:55 | Day surgery (SDC) | payer BC ==
[~2017-12-28] VITALS: Ht 165.1 cm; Wt 54.9 kg
--- OUTSIDE RECORDS SUMMARY | 2017-12-28 11:59 | XMS REPORT ---
Author Author SABRINA CORONEL Organization [facility] Address [address] [place] [address] Care Team Providers Care Resident Care Technician Name Role Phone SABRINA CORONEL Unavailable PROBLEMS Unknown Problems ALLERGIES Substance Reaction Event Type Date Status Cefotan Unknown Drug Allergy Dec, Active Morphine Sulfate hives Drug Allergy Dec, Active ENCOUNTERS Encounter Location Date Diagnosis [facility] [address] [facility] [id number] [address] Dec, Acute rhinosinusitis J01.90 IMMUNIZATIONS Vaccine Route Administration Date Status DEPO MEDROL 40 MG/ML IM Intramuscular Jan 13, 2017 Administered DEXAMETHASONE 20MG/5 ML (PER 1 MG) IM Intramuscular Jan 13, 2017 Administered SOCIAL HISTORY Never Assessed REASON FOR VISIT productive cough that is green tinged, headache, neck ache, sinus pressure. been sick for 2 days. [email or web address] PLAN OF CARE Activity Details Follow Up prn Reason: VITAL SIGNS Height 65 in 2017-01-13 Weight 123.6 lbs 2017-01-13 Temperature 97.5 degrees Fahrenheit 2017-01-13 Heart Rate 80 bpm 2017-01-13 Respiratory Rate 18 2017-01-13 BMI 20.57 kg/m2 2017-01-13 Blood pressure systolic 126 mmHg 2017-01-13 Blood pressure diastolic 72 mmHg 2017-01-13 MEDICATIONS Medication Instructions Dosage Frequency Start Date End Date Duration Status Zoloft 100 MG Orally Once a day 1 tablet 24h Active Synthroid 75 MCG Orally Once a day 1 tablet on an empty stomach in the morning 24h Active Triamterene-HCTZ 37.5-25 MG Active Fluticasone Propionate 50 MCG/ACT Nasally Once a day 1 spray in each nostril 24h Dec, 12 months Active Estradiol 2 MG Orally Daily for Three Weeks, 1 Week off 1 tablet Active RESULTS No Results PROCEDURES Procedure Date Ordered Result Body Site DEXAMETHASONE 20MG/5 ML (PER 1 MG) Jan 13, 2017 DEPO MEDROL 40 MG/ML Jan 13, 2017 THER/PROPH/DIAG INJ, SC/IM Jan 13, 2017 INSTRUCTIONS MEDICATIONS ADMINISTERED No Known Medications MEDICAL (GENERAL) HISTORY Type Description Date Medical History hypothyroidism Medical History depression
[2017-12-28] MEDS ORDERED: proPOfol 200 MG/20 ML (DIPRIVAN) VIAL IV ONE (12:26)
[2017-12-28] MEDS ORDERED: LIDOCAINE PF 2% 2 ML (XYLOCAINE) VIAL ONE (12:26)
[2017-12-28] MEDS ORDERED: ONDANSETRON 4 MG/2 ML (SDV) Z0FRAN ONE (12:26)
[2017-12-28] MEDS ORDERED: ROCURONIUM 10 MG/ML 5 ML SYRINGE IV ONE (12:26)
[2017-12-28] MEDS ORDERED: MIDAZOLAM 2 MG/2 ML (VERSED) VIAL ONE (12:26)
[2017-12-28] MEDS ORDERED: SUCCINYLCHOLINE INJ 100 MG/5 ML SYR ONE (12:26)
[2017-12-28] MEDS ORDERED: fentaNYL INJECTION 100 MCG/2 ML AMP ONE (12:27)
[2017-12-28] MEDS ORDERED: LACTATED RINGERS 1,000 ML IV PRN ×2 (12:28)
[2017-12-28] MEDS ORDERED: LACTATED RINGERS 1,000 ML IV STA (12:28)
[2017-12-28] MEDS ORDERED: HURRICAINE EXT TUBE (BENZOCAINE) XX PRN (12:30)
[2017-12-28] MEDS ORDERED: fentaNYL INJECTION 100 MCG/2 ML AMP IV ONE (12:30)
[2017-12-28] MEDS ORDERED: ceFAZolin INJECTION 1,000 MG in NS (IVPB) 50 ML IV ONE (12:30)
[2017-12-28] MEDS ORDERED: ONDANSETRON 4 MG/2 ML (SDV) Z0FRAN IV ONE (12:30)
[2017-12-28] MEDS ORDERED: ceFAZolin 1,000 MG/10 ML (ANCEF) VIAL ONE (12:32)
[2017-12-28] MEDS ORDERED: NS (IVPB) 50 ML ONE (12:33)
[2017-12-28 12:41] LABS: BASOPHILS # (AUTO) 0.1 10^3/uL (0.0-0.1); BASOPHILS % (AUTO) 1 % (0-10); EOSINOPHILS # (AUTO) 0.1 10^3/uL (0.0-0.3); EOSINOPHILS % (AUTO) 1 % (0-10); HEMATOCRIT 39 % (35-52); HEMOGLOBIN 13.9 G/DL (11.5-16.0); LYMPHOCYTES # (AUTO) 1.6 X 10^3 (1.0-4.0); LYMPHOCYTES % (AUTO) 21 % (12-44); MEAN CORPUSCULAR HEMOGLOBIN 32 PG (25-34); MEAN CORPUSCULAR HGB CONC 36 G/DL (32-36); MEAN CORPUSCULAR VOLUME 89 FL (80-99); MEAN PLATELET VOLUME 9.8 FL (7.4-10.4); MONOCYTES # (AUTO) 0.7 X 10^3 (0.0-1.0); MONOCYTES % (AUTO) 9 % (0-12); NEUTROPHILS # (AUTO) 5.3 X 10^3 (1.8-7.8); NEUTROPHILS % (AUTO) 68 % (42-75); PLATELET COUNT 279 10^3/uL (130-400); RED BLOOD COUNT 4.34 10^6/uL (4.35-5.85); RED CELL DISTRIBUTION WIDTH 11.8 % (10.0-14.5); WHITE BLOOD COUNT 7.7 10^3/uL (4.3-11.0)
--- NOTE | 2017-12-28 12:57 | Progress Note-Pre Operative ---
Pre-Operative Progress Note H&P Reviewed The H&P was reviewed, patient examined and no changes noted. Time Seen by Provider: 12:54 Date H&P Reviewed: Dec 28, 2017 Time H&P Reviewed: 12:55 Pre-Operative Diagnosis: Chronic Gastritis, Surveillance Colonoscopy KADEN BACK DO Dec 28, 2017 12:57
[2017-12-28] MEDS ORDERED: LEVOFLOXACIN 250 MG/50 ML IVPB 50 ML ONE (13:02)
[2017-12-28] MEDS ORDERED: D5 LR IV SOLUTION 1,000 ML IV SCH (13:10)
--- NOTE | 2017-12-28 13:10 | Progress Note-Pre Operative ---
Pre-Operative Progress Note H&P Reviewed The H&P was reviewed, patient examined and no changes noted. Date Seen by Provider: Dec 28, 2017 Time Seen by Provider: 13:09 Date H&P Reviewed: Dec 28, 2017 Time H&P Reviewed: 13:09 Pre-Operative Diagnosis: Postmenopausal bleeding/intrauterine mass JM WOLFF MD Dec 28, 2017 1:09 pm
--- NOTE | 2017-12-28 13:10 | Progress Note-Post Operative ---
Post-Operative Progess Note Surgeon (s)/Comic Book Artist (s) Surgeon JM WOLFF MD Comic Book Artist: None Pre-Operative Diagnosis Postmenopausal bleeding/intrauterine mass Post-Operative Diagnosis Same with pathology pending Procedure & Operative Findings Date of Procedure 12/28/17 Procedure Performed/Findings Hysteroscopy with directed biopsy and D&C Anesthesia Type GETA Estimated Blood Loss Estimated blood loss (mL): MINIMAL Specimens/Packing Specimens Removed Intrauterine tissue and endometrial curettings Packing: None JM WOLFF MD Dec 28, 2017 13:10
[2017-12-28] MEDS ORDERED: OXYC1TAB87 PO (13:14)
[2017-12-28] MEDS ORDERED: PROMETHAZINE INJ 25 MG/ML (PHENERGAN) AMP IM ONE (13:15)
[2017-12-28] MEDS ORDERED: ONDANSETRON 4 MG/2 ML (SDV) Z0FRAN IVP PRN ×2 (13:15→14:30)
[2017-12-28] MEDS ORDERED: oxyCODONE/APAP 5/325MG (PERCOCET 5) TABLET PO PRN (13:15)
[2017-12-28] MEDS ORDERED: MEPERIDINE (DEMEROL) INJ 100 MG/ML IM ONE (13:15)
[2017-12-28] MEDS ORDERED: KETOROLAC 30 MG/ML VIAL IVP ONE (13:15)
--- NOTE | 2017-12-28 13:17 | Discharge Instructions ---
Discharge Instructions Discharge Medications New, Converted or Re-Newed RX: RX on Chart Patient Instructions Patient Instructions: As directed Return to The Hospital For: As directed Activity & Diet Discharge Diet: No Restrictions Activity as Tolerated: No Orders-Post D/C & Referrals Follow Up Appt: Call to make follow up appt. for patient in 2 weeks. Activity: as tolerated. Diet: As tolerated-Clear Liquids only if nauseated. May shower or tub bathe as desired. No driving for 24 hours, no alcoholic beverages for 24 hours, and nothing per vagina (no tampons, douching, or intercoarse) for 2 weeks. Patient to return to the clinic as soon as possible for: Temperature greater than 101F, Severe Pain, Foul discharge from incision or vagina, Excessive Bleeding (more than a period). JM WOLFF MD Dec 28, 2017 1:17 pm
[2017-12-28] MEDS ORDERED: LEVOFLOXACIN 250 MG/50 ML IVPB 50 ML IV ONE (13:30)
--- NOTE | 2017-12-28 13:52 | Progress Note-Post Operative ---
Post-Operative Progess Note Surgeon (s)/Manager Imaging (s) Surgeon KADEN BACK DO Manager Imaging: None Pre-Operative Diagnosis Gastritis, Surveillance Colonoscopy Post-Operative Diagnosis Gastritis DIverticula Internal hemorrhoids Procedure & Operative Findings Date of Procedure 12/28/17 Procedure Performed/Findings EGD with bx Colonoscopy Anesthesia Type GET Estimated Blood Loss Estimated blood loss (mL): scant Specimens/Packing Specimens Removed Antral bx x 2 Fundus bx GE jxn bx Packing: None KADEN BACK DO Dec 28, 2017 13:52
[2017-12-28 13:55] VITALS: BP 134/71
[2017-12-28] MEDS ORDERED: KETOROLAC 30 MG/ML VIAL ONE (14:01)
[2017-12-28] MEDS ORDERED: SEVOFLURANE (ULTANE) 15 ML INHAL SOLN ONE (14:03)
[2017-12-28] MEDS ORDERED: fentaNYL INJECTION 100 MCG/2 ML AMP IVP ONE (14:30)
[2017-12-28] MEDS ORDERED: MEPERIDINE (DEMEROL) INJ 50 MG/ML IVP ONE (14:30)
[2017-12-28 15:15] VITALS: BP 142/88
[2017-12-28 15:45] VITALS: BP 145/79
[2017-12-28 16:15] VITALS: BP 148/83
[2017-12-28 16:45] VITALS: BP 148/83
--- NOTE | 2017-12-28 18:24 | OPERATIVE REPORT ---
DATE OF SERVICE: 12/28/2017 PREOPERATIVE DIAGNOSES: 1. Gastritis. 2. Surveillance colonoscopy. POSTOPERATIVE DIAGNOSES: 1. Gastritis. 2. Diverticula. 3. Internal hemorrhoids. PROCEDURE: 1. EGD with biopsy. 2. Colonoscopy. SURGEON: Alvaro Bauer DO. BELL VALET: None. ANESTHESIA: General endotracheal tube. SPECIMEN: Two biopsies from the antrum, one biopsy from the fundus and one biopsy from the GE junction. BLOOD LOSS: Scant. FLUIDS: Per anesthesia. POSTOPERATIVE CONDITION: Stable. INDICATION FOR PROCEDURE: The patient is a 57-year-old female who has got complaint of heartburn, chronic gastritis, needed an EGD and she also has a history of colon cancer and is a 1-year surveillance colonoscopy. FINDINGS: The patient had some gastritis, little bit of creeping up of the GE junction. She had some diverticula and some internal hemorrhoids seen, but no other obvious pathology, no polyps seen in the colonoscopy. PROCEDURE NOTE: After informed consent was obtained, the patient was brought to the operating room. She was having a procedure by WORSHIP LEADER, so she was intubated. She was turned in the left lateral decubitus position. A colonoscopy was first performed. Inserted the scope, pushed all the way to about 120 cm, able all the way to cecum, took a picture of appendiceal orifice. On the way in and noted the previous anastomosis that looked good. A picture of some diverticula on the way in at the cecum, took a picture of the appendiceal orifice and ileocecal valve slowly withdrew the scope insufflating to look circumferentially at the lee looking the cecum, up the ascending colon to the transverse colon down the transverse colon to the splenic flexure and then down the descending colon and then into the rectum. Again, took a picture of the anastomosis, it looked good. Retroflexed in rectal vault, saw some internal hemorrhoids, took a picture of these and then removed the scope then went to the top, switched scopes, switched gloves and started the EGD, pushed the scope down the mouth through the esophagus into the stomach. Actually, a little bit of erythema in the stomach and around the antrum, took a picture of this and then pushed into the duodenum. Duodenum looked okay, took a picture here back out of the antrum, took two biopsies in the antrum and then backed up and retroflexed the scope. We did not really see an hiatal hernia. We did see some erythema in the upper fundus. We took a biopsy of the fundus then pulled back into the esophagus at the GE junction, looked like there was a little bit creeping up of the GE junction, so took a biopsy right at the junction of the esophagus and the stomach then pulled up out the esophagus, took another picture of above. I did not see any other obvious pathology and removed the scope. The patient tolerated the procedure and then Dr. Ingram did his procedure. Job ID: [id number] DocumentID: [id number] Dictated Date: 12/28/2017 14:02:10 Plywood Layup Line Back Feeder Date: 12/28/2017 18:23:45 Dictated By: ALVARO BAUER DO
--- NOTE | 2017-12-28 18:47 | OPERATIVE REPORT ---
DATE OF SERVICE: 12/28/2017 PREOPERATIVE DIAGNOSIS: Postmenopausal bleeding with intrauterine mass noted on ultrasound. POSTOPERATIVE DIAGNOSIS: Postmenopausal bleeding with intrauterine polypoid mass. OPERATIVE PROCEDURE: Hysteroscopy with directed biopsy and D and C. OPERATIVE DESCRIPTION: With the patient in the supine position, she was status post a colonoscopy and EGD per Dr. Bauer. She remained under general anesthesia and intubated in the OR for my portion of the procedure. She was repositioned now in the dorsal lithotomy position in the Jw stirrups and prepped and draped in the usual fashion for vaginal surgery. The urinary bladder was drained with a straight catheter. A weighted speculum placed in the posterior fornix of vagina. The cervix exposed and grasped anteriorly with a single tooth tenaculum. Uterus was sounded to 11 cm with uterine sound. Cervix was then serially dilated with Juarez dilators to accommodate a hysteroscope, which was introduced using LR as a distending medium. The endometrial cavity was examined. The right anterior-lateral uterine cavity wall had a polypoid mass emanating from its surface. This mass was grasped at its base and resected and removed with the scope. The attachment point of this mass was then biopsied and removed in several additional small fragments of tissue to be sure that the lesion was removed in its entirety. The endometrial cavity was examined. There was no additional pathology of note. The endometrial cavity was now sharply curettaged in all 4 quadrants to good uterine cry with removal of a small amount of additional tissue. The endometrial cavity was reexamined. There was no significant bleeding and no remaining abnormal pathology. The hysteroscope was removed as was the tenaculum. There was no bleeding from the tenaculum puncture sites and no bleeding from the cervical os at this point. A total of 900 mL of LR was used as a distending medium and that same amount was recovered. The patient tolerated the procedure well and was uneventfully awakened from her general anesthesia and transferred to recovery room in stable condition with plans for discharge home PAR. Sponge and needle counts were correct on completion of the procedure. Job ID: [id number] DocumentID: [id number] Dictated Date: 12/28/2017 14:07:14 Brick Pitcher Date: 12/28/2017 18:46:49 Dictated By: JM WOLFF MD
== END 2017-12-28 16:45 | disposition home or self-care (01) ==
LOC: SDC 11:55
PROVIDERS: ATTEND Obstetrics & Gynecology
DX: Z08 Encounter for follow-up examination after completed treatment for malignant neoplasm (principal); Z85.038 Personal history of other malignant neoplasm of large intestine; K57.30 Diverticulosis of large intestine without perforation or abscess without bleeding; K64.8 Other hemorrhoids; K29.50 Unspecified chronic gastritis without bleeding; K21.9 Gastro-esophageal reflux disease without esophagitis; N95.0 Postmenopausal bleeding; Z87.891 Personal history of nicotine dependence; Z79.899 Other long term (current) drug therapy
CPT/HCPCS: 36415; 85025; 87081

== ENCOUNTER 2018-03-18 09:39 | Outpatient (RCR) | payer BC ==
[~2018-03-18 09:39] MED LIST changes: +OXYC1TAB87 PO
[2018-03-18 09:56] LABS: BASOPHILS # (AUTO) 0.1 10^3/uL (0.0-0.1); BASOPHILS % (AUTO) 2 % (0-10); EOSINOPHILS # (AUTO) 0.1 10^3/uL (0.0-0.3); EOSINOPHILS % (AUTO) 2 % (0-10); HEMATOCRIT 40 % (35-52); HEMOGLOBIN 13.7 G/DL (11.5-16.0); LYMPHOCYTES # (AUTO) 1.7 X 10^3 (1.0-4.0); LYMPHOCYTES % (AUTO) 25 % (12-44); MEAN CORPUSCULAR HEMOGLOBIN 31 PG (25-34); MEAN CORPUSCULAR HGB CONC 34 G/DL (32-36); MEAN CORPUSCULAR VOLUME 90 FL (80-99); MEAN PLATELET VOLUME 9.7 FL (7.4-10.4); MONOCYTES # (AUTO) 0.5 X 10^3 (0.0-1.0); MONOCYTES % (AUTO) 7 % (0-12); NEUTROPHILS # (AUTO) 4.2 X 10^3 (1.8-7.8); NEUTROPHILS % (AUTO) 63 % (42-75); PLATELET COUNT 292 10^3/uL (130-400); RED CELL DISTRIBUTION WIDTH 12.1 % (10.0-14.5); WHITE BLOOD COUNT 6.6 10^3/uL (4.3-11.0)
[2018-03-18 10:15] LABS: ALANINE AMINOTRANSFERASE 16 U/L (0-55); ALBUMIN 4.6 GM/DL (3.2-4.5); ALKALINE PHOSPHATASE 63 U/L (40-136); BILIRUBIN,TOTAL 0.5 MG/DL (0.1-1.0); BUN/CREATININE RATIO 18; CALCIUM 10.2 MG/DL (8.5-10.1); CARBON DIOXIDE 25 MMOL/L (21-32); CHLORIDE 104 MMOL/L (98-107); CREATININE SERUM 0.77 MG/DL (0.60-1.30); GFR ESTIMATED > 60; GLUCOSE 89 MG/DL (70-105); POTASSIUM 3.8 MMOL/L (3.6-5.0); SODIUM 139 MMOL/L (135-145); TOTAL PROTEIN 7.8 GM/DL (6.4-8.2)
[2018-06-17 10:16] LABS: BASOPHILS # (AUTO) 0.1 10^3/uL (0.0-0.1); BASOPHILS % (AUTO) 2 % (0-10); EOSINOPHILS # (AUTO) 0.1 10^3/uL (0.0-0.3); EOSINOPHILS % (AUTO) 1 % (0-10); HEMATOCRIT 41 % (35-52); HEMOGLOBIN 13.8 G/DL (11.5-16.0); LYMPHOCYTES # (AUTO) 1.5 X 10^3 (1.0-4.0); LYMPHOCYTES % (AUTO) 24 % (12-44); MEAN CORPUSCULAR HEMOGLOBIN 31 PG (25-34); MEAN CORPUSCULAR HGB CONC 34 G/DL (32-36); MEAN CORPUSCULAR VOLUME 90 FL (80-99); MEAN PLATELET VOLUME 9.7 FL (7.4-10.4); MONOCYTES # (AUTO) 0.5 X 10^3 (0.0-1.0); MONOCYTES % (AUTO) 8 % (0-12); NEUTROPHILS % (AUTO) 66 % (42-75); PLATELET COUNT 269 10^3/uL (130-400); RED CELL DISTRIBUTION WIDTH 11.9 % (10.0-14.5); WHITE BLOOD COUNT 6.1 10^3/uL (4.3-11.0)
[2018-06-17 10:44] LABS: ALANINE AMINOTRANSFERASE 15 U/L (0-55); ALBUMIN 4.6 GM/DL (3.2-4.5); ALKALINE PHOSPHATASE 50 U/L (40-136); BILIRUBIN,TOTAL 0.4 MG/DL (0.1-1.0); BUN/CREATININE RATIO 17; CALCIUM 9.9 MG/DL (8.5-10.1); CARBON DIOXIDE 25 MMOL/L (21-32); CHLORIDE 104 MMOL/L (98-107); CREATININE SERUM 0.81 MG/DL (0.60-1.30); GFR ESTIMATED > 60; GLUCOSE 93 MG/DL (70-105); SODIUM 137 MMOL/L (135-145); TOTAL PROTEIN 7.4 GM/DL (6.4-8.2)
== END 2018-06-16 | disposition home or self-care (01) ==
LOC: ONC 09:39
PROVIDERS: ATTEND Internal Medicine Hematology & Oncology
DX: C18.7 Malignant neoplasm of sigmoid colon (principal); E03.9 Hypothyroidism, unspecified; R00.2 Palpitations; K59.00 Constipation, unspecified; Z87.891 Personal history of nicotine dependence; Z79.899 Other long term (current) drug therapy
CPT/HCPCS: 36415; 80053; 82378; 85025; 99213

== ENCOUNTER → 2018-04-03 | Outpatient (CLI) | payer BC ==
--- NOTE | 2018-04-03 13:38 | Diagnostic Imaging Report ---
INDICATION: COUGH,WHEEZING,MALIGNANT NEOPLASM OF SIGMOID COLON COMPARISON: 01/04/2009 FINDINGS: Frontal and lateral views of the chest demonstrate normal heart size and pulmonary vascularity. The lungs are clear. There are no signs of infiltrate, pleural effusions or pneumothoraces. The visualized osseous structures show no acute abnormalities. IMPRESSION: 1. No acute process. No signs of infiltrates, effusions or pneumothoraces. Dictated by: Dictated on workstation # [id number]
== END ==
LOC: RAD 13:09
PROVIDERS: ATTEND Nurse Practitioner Adult Health
DX: C18.7 Malignant neoplasm of sigmoid colon (principal); R05 Cough; R06.2 Wheezing
CPT/HCPCS: 71046

== ENCOUNTER 2018-06-17 09:54 | Outpatient (RCR) | payer BC ==
[2018-06-17 10:16] LABS: BASOPHILS # (AUTO) 0.1 10^3/uL (0.0-0.1); BASOPHILS % (AUTO) 2 % (0-10); EOSINOPHILS # (AUTO) 0.1 10^3/uL (0.0-0.3); EOSINOPHILS % (AUTO) 1 % (0-10); HEMATOCRIT 41 % (35-52); HEMOGLOBIN 13.8 G/DL (11.5-16.0); LYMPHOCYTES # (AUTO) 1.5 X 10^3 (1.0-4.0); LYMPHOCYTES % (AUTO) 24 % (12-44); MEAN CORPUSCULAR HEMOGLOBIN 31 PG (25-34); MEAN CORPUSCULAR HGB CONC 34 G/DL (32-36); MEAN CORPUSCULAR VOLUME 90 FL (80-99); MEAN PLATELET VOLUME 9.7 FL (7.4-10.4); MONOCYTES # (AUTO) 0.5 X 10^3 (0.0-1.0); MONOCYTES % (AUTO) 8 % (0-12); NEUTROPHILS % (AUTO) 66 % (42-75); PLATELET COUNT 269 10^3/uL (130-400); RED CELL DISTRIBUTION WIDTH 11.9 % (10.0-14.5); WHITE BLOOD COUNT 6.1 10^3/uL (4.3-11.0)
[2018-06-17 10:44] LABS: ALANINE AMINOTRANSFERASE 15 U/L (0-55); ALBUMIN 4.6 GM/DL (3.2-4.5); ALKALINE PHOSPHATASE 50 U/L (40-136); BILIRUBIN,TOTAL 0.4 MG/DL (0.1-1.0); BUN/CREATININE RATIO 17; CALCIUM 9.9 MG/DL (8.5-10.1); CARBON DIOXIDE 25 MMOL/L (21-32); CHLORIDE 104 MMOL/L (98-107); CREATININE SERUM 0.81 MG/DL (0.60-1.30); GFR ESTIMATED > 60; GLUCOSE 93 MG/DL (70-105); SODIUM 137 MMOL/L (135-145); TOTAL PROTEIN 7.4 GM/DL (6.4-8.2)
== END 2018-09-15 | disposition home or self-care (01) ==
LOC: ONC 09:54
PROVIDERS: ATTEND Internal Medicine Hematology & Oncology
DX: C18.7 Malignant neoplasm of sigmoid colon (principal); E03.9 Hypothyroidism, unspecified; R00.2 Palpitations; K59.00 Constipation, unspecified; Z87.891 Personal history of nicotine dependence; Z79.899 Other long term (current) drug therapy
CPT/HCPCS: 36415; 80053; 82378; 85025; 99213

== ENCOUNTER 2018-09-16 09:04 | Outpatient (RCR) | payer BC ==
[2018-09-16 09:26] LABS: BASOPHILS # (AUTO) 0.1 10^3/uL (0.0-0.1); BASOPHILS % (AUTO) 2 % (0-10); EOSINOPHILS # (AUTO) 0.1 10^3/uL (0.0-0.3); EOSINOPHILS % (AUTO) 2 % (0-10); HEMATOCRIT 39 % (35-52); HEMOGLOBIN 13.3 G/DL (11.5-16.0); LYMPHOCYTES # (AUTO) 1.7 X 10^3 (1.0-4.0); LYMPHOCYTES % (AUTO) 30 % (12-44); MEAN CORPUSCULAR HEMOGLOBIN 31 PG (25-34); MEAN CORPUSCULAR HGB CONC 34 G/DL (32-36); MEAN CORPUSCULAR VOLUME 90 FL (80-99); MEAN PLATELET VOLUME 9.8 FL (7.4-10.4); MONOCYTES # (AUTO) 0.6 X 10^3 (0.0-1.0); MONOCYTES % (AUTO) 10 % (0-12); NEUTROPHILS # (AUTO) 3.1 X 10^3 (1.8-7.8); NEUTROPHILS % (AUTO) 55 % (42-75); PLATELET COUNT 287 10^3/uL (130-400); RED CELL DISTRIBUTION WIDTH 11.9 % (10.0-14.5); WHITE BLOOD COUNT 5.6 10^3/uL (4.3-11.0)
[2018-09-16 09:54] LABS: ALANINE AMINOTRANSFERASE 14 U/L (0-55); ALBUMIN 4.4 GM/DL (3.2-4.5); ALKALINE PHOSPHATASE 56 U/L (40-136); BILIRUBIN,TOTAL 0.3 MG/DL (0.1-1.0); BUN/CREATININE RATIO 16; CALCIUM 9.5 MG/DL (8.5-10.1); CARBON DIOXIDE 24 MMOL/L (21-32); CHLORIDE 105 MMOL/L (98-107); CREATININE SERUM 0.87 MG/DL (0.60-1.30); GFR ESTIMATED > 60; GLUCOSE 93 MG/DL (70-105); SODIUM 137 MMOL/L (135-145); TOTAL PROTEIN 7.2 GM/DL (6.4-8.2)
== END 2018-12-15 | disposition home or self-care (01) ==
LOC: ONC 09:04
PROVIDERS: ATTEND Internal Medicine Hematology & Oncology
DX: C18.7 Malignant neoplasm of sigmoid colon (principal); E03.9 Hypothyroidism, unspecified; R00.2 Palpitations; K59.00 Constipation, unspecified; Z87.891 Personal history of nicotine dependence; Z79.899 Other long term (current) drug therapy
CPT/HCPCS: 36415; 80053; 82378; 85025; 99213

== ENCOUNTER → 2018-09-16 | Outpatient (CLI) | payer BC | LOC: LAB 09:07 | PROVIDERS: ATTEND Family Medicine | DX: E03.9 Hypothyroidism, unspecified (principal) | CPT/HCPCS: 84443 ==

== ENCOUNTER 2019-02-24 05:45 | Outpatient (CLI) | payer BC ==
[~2019-02-24] VITALS: Ht 165 cm; Wt 54.5 kg
[2019-02-24] MEDS ORDERED: DOCU-238 PO (12:16)
== END 2019-02-24 14:39 | disposition home or self-care (01) ==
LOC: PREOP 05:45
PROVIDERS: ATTEND Surgery
DX: Z01.818 Encounter for other preprocedural examination (principal)

== ENCOUNTER 2019-03-03 07:29 | Day surgery (SDC) | payer BC ==
[2019-03-03] VITALS (11 sets, daily range): BP systolic 97–138; BP diastolic 51–99
[~2019-03-03] VITALS: Ht 165 cm; Wt 54.5 kg
[~2019-03-03 07:29] MED LIST changes: +DOCU-238 PO
[2019-03-03] MEDS ORDERED: LACTATED RINGERS 1,000 ML IV ONE (07:37)
[2019-03-03] MEDS ORDERED: LACTATED RINGERS 1,000 ML IV STA (07:41)
[2019-03-03] MEDS ORDERED: MIDAZOLAM 2 MG/2 ML (VERSED) VIAL ONE (07:49)
[2019-03-03] MEDS ORDERED: PROPOFOL INJECTION 50 ML IV ONE (07:49)
--- NOTE | 2019-03-03 08:13 | Progress Note-Pre Operative ---
Pre-Operative Progress Note H&P Reviewed The H&P was reviewed, patient examined and no changes noted. Time Seen by Provider: 08:06 Date H&P Reviewed: Mar 03, 2019 Time H&P Reviewed: 08:07 Pre-Operative Diagnosis: Surveillance colonoscopy, Hx of Colon CA KADEN BACK DO Mar 03, 2019 08:13 POS
--- NOTE | 2019-03-03 09:10 | Progress Note-Post Operative ---
Post-Operative Progess Note Surgeon (s)/Bridge Crew Member (s) Surgeon KADEN BACK DO Bridge Crew Member: KARLOS KimII Pre-Operative Diagnosis Surveillance colonoscopy, Hx of Colon CA Post-Operative Diagnosis Diverticula Internal Hemorrhoids Procedure & Operative Findings Date of Procedure 03/03/19 Procedure Performed/Findings Colon Anesthesia Type IV sedation by EMPLOYMENT EVALUATOR/CASE MANAGER Estimated Blood Loss Estimated blood loss (mL): none Specimens/Packing Specimens Removed none KADEN BACK DO Mar 03, 2019 09:10 POS
--- NOTE | 2019-03-03 09:11 | Endoscopy Discharge Instruct ---
Endo Procedure/Findings Findings 1.: Diverticulosis 2.: Internal Hemorrhoids Discharge Instructions - Activity: You might feel a little sleepy until tomorrow. This is due to the medicine you received to relax you. Until tomorrow, you should: NOT drive a car, operate machinery or power tools. NOT drink any alcoholic beverages. NOT make any important decisions or sign importortant papers. Do not return to work until tomorrow, unless otherwise instructed. Resume previous activities tomorrow. Diet: Start by taking liquids. If you tolerate liquids, advance to solid food. make an appointment for one week 1.: Colonoscopy in 1 year Notify Physician - If you experience excessive bleeding, unusual abdominal pain, fever, or chest pain, contact your doctor immediately. KADEN BACK DO Mar 03, 2019 09:11 POS
--- NOTE | 2019-03-03 11:53 | Anesthesia-General Post-Op ---
MAC Patient Condition Mental Status/LOC: Same as Preop Cardiovascular: Satisfactory Nausea/Vomiting: Absent Respiratory: Satisfactory Pain: Controlled Complications: Absent Post Op Complications Complications None Follow Up Care/Instructions Patient Instructions None needed. Anesthesiology Discharge Order Discharge Order Patient is doing well, no complaints, stable vital signs, no apparent adverse anesthesia problems. No complications reported per nursing. STEPHEN MICHEL CRNA Mar 03, 2019 11:53 POS
--- NOTE | 2019-03-03 13:15 | OPERATIVE REPORT ---
DATE OF SERVICE: 03/03/2019 PREOPERATIVE DIAGNOSES: Surveillance colonoscopy, history of colon cancer. POSTOPERATIVE DIAGNOSES: Diverticula, internal hemorrhoids. PROCEDURE: Colonoscopy. SURGEON: Alvaro Bauer DO LINE ERECTOR: KAREEM Kim SPECIMENS: None. BLOOD LOSS: None. FLUIDS: Per anesthesia. POSTOPERATIVE CONDITION: Stable. INDICATION FOR PROCEDURE: The patient is a 58-year-old female, who unfortunately had a history of colon cancer and colon resection, needed a surveillance colonoscopy. FINDINGS: The patient had some diverticula, actually most of them on the right side. She had some grade II internal hemorrhoids, but no other pathology seen. PROCEDURE NOTE: After informed consent was obtained, the patient was brought to the endoscopy suite and placed in the bed in left lateral decubitus position. She was administered IV sedation by the FORESTRY WORKER, who then monitored her vitals the entire time, heart rate, blood pressure and pulse ox and the scope was then inserted, pushed all the way to about 130 cm, able to get all the way to cecum, took a picture of appendiceal orifice, noted the ileocecal valve and then slowly withdrew the scope insufflating to look circumferentially at the lee looking at the cecum, up the ascending colon to the hepatic flexure. Throughout here, there was diverticula and then down the transverse colon, that was through here there was also some diverticula, to the splenic flexure and down into the descending colon. The patient had a portion of descending colon and sigmoid removed from her previous cancer. Continued down, found the anastomotic site, took a picture, continued down into the rectum, retroflexed the rectal vault, saw some internal hemorrhoids, probably grade II and at this point then removed the scope. The patient tolerated the procedure, recovered in endoscopy suite. Job ID: [id number] DocumentID: [id number] Dictated Date: 03/03/2019 09:14:17 Production Line Assembler Date: 03/03/2019 13:14:31 Dictated By: ALVARO BAUER DO
== END 2019-03-03 10:00 | disposition home or self-care (01) ==
LOC: ENDO 07:29
PROVIDERS: ATTEND Surgery
DX: Z12.11 Encounter for screening for malignant neoplasm of colon (principal); K57.30 Diverticulosis of large intestine without perforation or abscess without bleeding; K64.8 Other hemorrhoids; I10 Essential (primary) hypertension; E03.9 Hypothyroidism, unspecified; F41.9 Anxiety disorder, unspecified; F32.9 Major depressive disorder, single episode, unspecified; Z87.891 Personal history of nicotine dependence; Z85.038 Personal history of other malignant neoplasm of large intestine; Z90.49 Acquired absence of other specified parts of digestive tract; Z88.8 Allergy status to other drugs, medicaments and biological substances; Z90.89 Acquired absence of other organs; Z88.5 Allergy status to narcotic agent; Z80.3 Family history of malignant neoplasm of breast; Z80.1 Family history of malignant neoplasm of trachea, bronchus and lung; Z82.49 Family history of ischemic heart disease and other diseases of the circulatory system; Z80.49 Family history of malignant neoplasm of other genital organs

== ENCOUNTER 2019-03-25 15:04 | Outpatient (RCR) | payer BC, OTHER ==
[2019-03-25 15:15] LABS: BASOPHILS # (AUTO) 0.1 10^3/uL (0.0-0.1); BASOPHILS % (AUTO) 2 % (0-10); EOSINOPHILS # (AUTO) 0.1 10^3/uL (0.0-0.3); EOSINOPHILS % (AUTO) 2 % (0-10); HEMATOCRIT 40 % (35-52); HEMOGLOBIN 13.6 G/DL (11.5-16.0); LYMPHOCYTES # (AUTO) 1.9 X 10^3 (1.0-4.0); LYMPHOCYTES % (AUTO) 28 % (12-44); MEAN CORPUSCULAR HEMOGLOBIN 31 PG (25-34); MEAN CORPUSCULAR HGB CONC 34 G/DL (32-36); MEAN CORPUSCULAR VOLUME 91 FL (80-99); MEAN PLATELET VOLUME 9.7 FL (7.4-10.4); MONOCYTES # (AUTO) 0.6 X 10^3 (0.0-1.0); MONOCYTES % (AUTO) 9 % (0-12); NEUTROPHILS # (AUTO) 4.1 X 10^3 (1.8-7.8); NEUTROPHILS % (AUTO) 59 % (42-75); PLATELET COUNT 311 10^3/uL (130-400); RED CELL DISTRIBUTION WIDTH 12.1 % (10.0-14.5); WHITE BLOOD COUNT 6.8 10^3/uL (4.3-11.0)
[2019-03-25 15:33] LABS: ALANINE AMINOTRANSFERASE 19 U/L (0-55); ALBUMIN 4.6 GM/DL (3.2-4.5); ALKALINE PHOSPHATASE 68 U/L (40-136); BILIRUBIN,TOTAL 0.3 MG/DL (0.1-1.0); BUN/CREATININE RATIO 15; CALCIUM 10.1 MG/DL (8.5-10.1); CARBON DIOXIDE 26 MMOL/L (21-32); CHLORIDE 103 MMOL/L (98-107); CREATININE SERUM 0.93 MG/DL (0.60-1.30); GFR ESTIMATED > 60; GLUCOSE 91 MG/DL (70-105); POTASSIUM 3.9 MMOL/L (3.6-5.0); SODIUM 140 MMOL/L (135-145); TOTAL PROTEIN 7.9 GM/DL (6.4-8.2)
== END 2019-06-23 | disposition home or self-care (01) ==
LOC: ONC 15:04
PROVIDERS: ATTEND Internal Medicine Hematology & Oncology
DX: C18.7 Malignant neoplasm of sigmoid colon (principal); E03.9 Hypothyroidism, unspecified; R00.2 Palpitations; K59.00 Constipation, unspecified; Z87.891 Personal history of nicotine dependence; Z79.899 Other long term (current) drug therapy
CPT/HCPCS: 80053; 82378; 85025; 99213

== ENCOUNTER → 2019-09-30 | Outpatient (CLI) | payer BC, OTHER ==
[2019-09-30 11:08] LABS: BASOPHILS # (AUTO) 0.1 10^3/uL (0.0-0.1); BASOPHILS % (AUTO) 2 % (0-10); EOSINOPHILS # (AUTO) 0.2 10^3/uL (0.0-0.3); EOSINOPHILS % (AUTO) 3 % (0-10); HEMATOCRIT 40 % (35-52); HEMOGLOBIN 13.7 G/DL (11.5-16.0); LYMPHOCYTES # (AUTO) 1.7 X 10^3 (1.0-4.0); LYMPHOCYTES % (AUTO) 26 % (12-44); MEAN CORPUSCULAR HEMOGLOBIN 31 PG (25-34); MEAN CORPUSCULAR HGB CONC 34 G/DL (32-36); MEAN CORPUSCULAR VOLUME 91 FL (80-99); MEAN PLATELET VOLUME 9.7 FL (7.4-10.4); MONOCYTES # (AUTO) 0.6 X 10^3 (0.0-1.0); MONOCYTES % (AUTO) 8 % (0-12); NEUTROPHILS % (AUTO) 61 % (42-75); PLATELET COUNT 287 10^3/uL (130-400); RED CELL DISTRIBUTION WIDTH 12.2 % (10.0-14.5); WHITE BLOOD COUNT 6.5 10^3/uL (4.3-11.0)
[2019-09-30 11:29] LABS: ALANINE AMINOTRANSFERASE 19 U/L (0-55); ALBUMIN 4.5 GM/DL (3.2-4.5); ALKALINE PHOSPHATASE 57 U/L (40-136); BILIRUBIN,TOTAL 0.4 MG/DL (0.1-1.0); BUN/CREATININE RATIO 15; CALCIUM 10.1 MG/DL (8.5-10.1); CARBON DIOXIDE 26 MMOL/L (21-32); CHLORIDE 104 MMOL/L (98-107); CREATININE SERUM 0.88 MG/DL (0.60-1.30); GFR ESTIMATED > 60; GLUCOSE 102 MG/DL (70-105); POTASSIUM 4.1 MMOL/L (3.6-5.0); SODIUM 138 MMOL/L (135-145); TOTAL PROTEIN 7.8 GM/DL (6.4-8.2)
== END ==
LOC: EDSTATUS 06-24 08:21 → ONC 10:54
PROVIDERS: ATTEND Internal Medicine Hematology & Oncology
DX: C18.7 Malignant neoplasm of sigmoid colon (principal); K59.09 Other constipation; Z90.49 Acquired absence of other specified parts of digestive tract
CPT/HCPCS: 80053; 82378; 84443; 85025; G0463; 99213

== ENCOUNTER → 2020-09-28 | Outpatient (CLI) | payer BC ==
[~2020-09-28] MED LIST changes: -DOCU-238 PO; +DOCU-241 PO
[2020-09-28 10:44] LABS: BASOPHILS # (AUTO) 0.2 10^3/uL (0.0-0.1); BASOPHILS % (AUTO) 2 % (0-10); EOSINOPHILS # (AUTO) 0.1 10^3/uL (0.0-0.3); EOSINOPHILS % (AUTO) 2 % (0-10); HEMATOCRIT 40 % (35-52); LYMPHOCYTES # (AUTO) 1.9 10^3/uL (1.0-4.0); LYMPHOCYTES % (AUTO) 27 % (12-44); MEAN CORPUSCULAR HEMOGLOBIN 32 pg (25-34); MEAN CORPUSCULAR HGB CONC 35 g/dL (32-36); MEAN CORPUSCULAR VOLUME 91 fL (80-99); MEAN PLATELET VOLUME 9.8 fL (9.0-12.2); MONOCYTES # (AUTO) 0.6 10^3/uL (0.0-1.0); MONOCYTES % (AUTO) 9 % (0-12); NEUTROPHILS # (AUTO) 4.2 10^3/uL (1.8-7.8); NEUTROPHILS % (AUTO) 60 % (42-75); PLATELET COUNT 307 10^3/uL (130-400)
[2020-09-28 11:04] LABS: ALANINE AMINOTRANSFERASE 15 U/L (0-55); ALBUMIN 4.4 GM/DL (3.2-4.5); ALKALINE PHOSPHATASE 57 U/L (40-136); BILIRUBIN,TOTAL 0.4 MG/DL (0.1-1.0); BUN/CREATININE RATIO 12; CALCIUM 9.8 MG/DL (8.5-10.1); CARBON DIOXIDE 26 MMOL/L (21-32); CHLORIDE 103 MMOL/L (98-107); CREATININE SERUM 0.85 MG/DL (0.60-1.30); GFR ESTIMATED > 60; GLUCOSE 84 MG/DL (70-105); POTASSIUM 3.9 MMOL/L (3.6-5.0); SODIUM 138 MMOL/L (135-145); TOTAL PROTEIN 7.7 GM/DL (6.4-8.2)
== END ==
LOC: ONC 10:32
PROVIDERS: ATTEND Internal Medicine Hematology & Oncology
DX: C18.7 Malignant neoplasm of sigmoid colon (principal); I10 Essential (primary) hypertension; K59.00 Constipation, unspecified; Z90.49 Acquired absence of other specified parts of digestive tract
CPT/HCPCS: 80053; 82378; 85025; G0463; 99213

== ENCOUNTER → 2021-04-13 | Outpatient (CLI) | payer BC ==
[~2021-04-13] MED LIST changes: -DOCU-241 PO; +DOCU-26 PO
[2021-04-13 14:20] LABS: BASOPHILS # (AUTO) 0.1 10^3/uL (0.0-0.1); BASOPHILS % (AUTO) 2 % (0-10); EOSINOPHILS # (AUTO) 0.2 10^3/uL (0.0-0.3); EOSINOPHILS % (AUTO) 2 % (0-10); HEMATOCRIT 42 % (35-52); HEMOGLOBIN 14.2 g/dL (11.5-16.0); LYMPHOCYTES # (AUTO) 2.1 10^3/uL (1.0-4.0); LYMPHOCYTES % (AUTO) 25 % (12-44); MEAN CORPUSCULAR HEMOGLOBIN 31 pg (25-34); MEAN CORPUSCULAR HGB CONC 34 g/dL (32-36); MEAN CORPUSCULAR VOLUME 92 fL (80-99); MEAN PLATELET VOLUME 9.4 fL (9.0-12.2); MONOCYTES # (AUTO) 0.7 10^3/uL (0.0-1.0); MONOCYTES % (AUTO) 8 % (0-12); NEUTROPHILS # (AUTO) 5.1 10^3/uL (1.8-7.8); NEUTROPHILS % (AUTO) 62 % (42-75); PLATELET COUNT 335 10^3/uL (130-400); WHITE BLOOD COUNT 8.2 10^3/uL (4.3-11.0)
[2021-04-13 14:40] LABS: ALBUMIN 4.4 GM/DL (3.2-4.5); BILIRUBIN,TOTAL 0.4 MG/DL (0.1-1.0); CALCIUM 9.8 MG/DL (8.5-10.1); CREATININE SERUM 1.03 MG/DL (0.60-1.30); POTASSIUM 3.9 MMOL/L (3.6-5.0); TOTAL PROTEIN 7.6 GM/DL (6.4-8.2)
== END ==
LOC: ONC 14:09
PROVIDERS: ATTEND Internal Medicine Hematology & Oncology
DX: C18.7 Malignant neoplasm of sigmoid colon (principal); I10 Essential (primary) hypertension; Z90.49 Acquired absence of other specified parts of digestive tract
CPT/HCPCS: 80053; 82378; 85025; G0463; 99213

== ENCOUNTER 2022-02-01 06:39 | Outpatient (CLI) | payer BC ==
[~2022-02-01] VITALS: Ht 165.1 cm; Wt 65.1 kg
[~2022-02-01 06:39] MED LIST changes: -TRIA1CAP4 PO; +TRIA1CAP84 PO
[2022-02-01] MEDS ORDERED: ZINC50TA11 PO (08:40)
[2022-02-01] MEDS ORDERED: VITA100C23 PO (08:40)
== END 2022-02-01 08:57 | disposition home or self-care (01) ==
LOC: PREOP 06:39
PROVIDERS: ATTEND Surgery
DX: Z01.818 Encounter for other preprocedural examination (principal)

== ENCOUNTER 2022-02-06 09:14 | Day surgery (SDC) | payer BC ==
[~2022-02-06] VITALS: Ht 165 cm; Wt 65.1 kg
[~2022-02-06 09:14] MED LIST changes: +VITA100C23 PO; +ZINC50TA11 PO
[2022-02-06] MEDS ORDERED: LACTATED RINGERS 1,000 ML IV STA (09:23)
--- NOTE | 2022-02-06 09:27 | Progress Note-Pre Operative ---
Pre-Operative Progress Note Date of Available H&P: Jan 26, 2022 Date H&P Reviewed: Feb 06, 2022 Time H&P Reviewed: 09:25 History & Physical: H&P Reviewed, Patient Examed, No changes noted Pre-Operative Diagnosis: Surveillance Colonoscopy, hx of colon CA KADEN BACK DO Feb 06, 2022 09:27
[2022-02-06 09:34] VITALS: BP 141/86
[2022-02-06] MEDS ORDERED: MIDAZOLAM 2 MG/2 ML (VERSED) VIAL ONE (10:53)
[2022-02-06] MEDS ORDERED: PROPOFOL INJECTION 50 ML IV ONE (10:53)
[2022-02-06 11:26] VITALS: BP 110/59
--- NOTE | 2022-02-06 11:30 | Progress Note-Post Operative ---
Post-Operative Progess Note Surgeon (s)/Corn Cooker (s) Surgeon KADEN BACK DO Corn Cooker: KARLOS RobledoII Pre-Operative Diagnosis Surveillance Colonoscopy, hx of colon CA Post-Operative Diagnosis Diverticula int hemorrhoids Procedure & Operative Findings Date of Procedure 02/06/22 Procedure Performed/Findings Colonoscopy PROCEDURE NOTE: After informed consent was obtained, the patient was brought to the endoscopy suite, placed in bed in left lateral decubitus position. She was administered IV sedation by the EGG SEPARATOR who then monitored her vitals the entire time, heart rate, blood pressure and pulse ox and the scope was inserted, pushed all the way to about [address] in noted diverticula in the ascending colon; took pictures and also saw some on the left. Pushed into the cecum, took a picture of appendiceal orifice, noted the ileocecal valve and then slowly withdrew the scope. Insufflating to look circumferentially at the lee starting in the cecum, up the ascending colon to the hepatic flexure, then down the transverse colon, to the splenic flexure and into the descending colon down and then into the rectal vault. I think I saw the anastomosis and took a picture of it. Finally, retroflexed the scope. Took picture of the internal hemorrhoids; appeared to be grade II. The patient tolerated the procedure. She was recovered in endoscopy suite. Recommended for repeat colonoscopy in 5 years, because of her Cancer history. Anesthesia Type IV sedation by EGG SEPARATOR Estimated Blood Loss Estimated blood loss (mL): none Specimens/Packing Specimens Removed none KADEN BACK DO Feb 06, 2022 11:30
[2022-02-06 11:31] VITALS: BP 119/65
--- NOTE | 2022-02-06 11:31 | Endoscopy Discharge Instruct ---
Endo Procedure/Findings Findings 1.: Diverticulosis 2.: Internal Hemorrhoids Discharge Instructions - Activity: You might feel a little sleepy until tomorrow. This is due to the medicine you received to relax you. Until tomorrow, you should: NOT drive a car, operate machinery or power tools. NOT drink any alcoholic beverages. NOT make any important decisions or sign importortant papers. Do not return to work until tomorrow, unless otherwise instructed. Resume previous activities tomorrow. Diet: Start by taking liquids. If you tolerate liquids, advance to solid food. 1.: Colonscopy in 5 years Notify Physician - If you experience excessive bleeding, unusual abdominal pain, fever, or chest pain, contact your doctor immediately. KADEN BACK DO Feb 06, 2022 11:31
[2022-02-06 11:35] VITALS: BP 119/65
[2022-02-06 12:03] VITALS: BP 120/68
--- NOTE | 2022-02-06 12:47 | Anesthesia-General Post-Op ---
MAC Patient Condition Mental Status/LOC: Same as Preop Cardiovascular: Satisfactory Nausea/Vomiting: Absent Respiratory: Satisfactory Pain: Controlled Complications: Absent Post Op Complications Complications None Follow Up Care/Instructions Patient Instructions None needed. Anesthesiology Discharge Order Discharge Order Patient is doing well, no complaints, stable vital signs, no apparent adverse anesthesia problems. No complications reported per nursing. DANIEL LOBO CRNA Feb 06, 2022 12:47
== END 2022-02-06 12:25 | disposition home or self-care (01) ==
LOC: ENDO 09:14
PROVIDERS: ATTEND Surgery
DX: Z12.11 Encounter for screening for malignant neoplasm of colon (principal); K57.30 Diverticulosis of large intestine without perforation or abscess without bleeding; K64.8 Other hemorrhoids; Z85.038 Personal history of other malignant neoplasm of large intestine; Z87.891 Personal history of nicotine dependence; Z90.49 Acquired absence of other specified parts of digestive tract; Z28.310 Unvaccinated for COVID-19